=== PATIENT | female | born 1955 | race Caucasian/White ===

== ENCOUNTER 2024-07-25 13:44 | Outpatient (REF) | payer MEDICARE, SELFPAY ==
[2024-07-25 17:48] LABS: MANUAL DIFF FLAG NO
[2024-07-25 18:26] LABS: Basophils Percent Auto 0.9 % (0-2); Eosinophils Absolute Auto 0.2 X10*3/uL (0.0-0.4); Eosinophils Percent Auto 6.1 % (0-4); Hematocrit 37.6 % (37.0-47.0); Hemoglobin 12.6 g/dl (12.0-16.0); Lymphocytes Absolute Auto 0.7 X10*3/uL (1.2-4.9); Lymphocytes Percent Auto 22.6 % (20-40); Mean Corpuscular HGB Conc 33.5 g/dl (31.0-35.0); Mean Corpuscular Hemoglobin 33.2 pg (27.0-33.0); Mean Corpuscular Volume 99.2 fL (80.0-98.0); Monocytes Absolute Auto 0.3 X10*3/uL (0.1-1.2); Monocytes Percent Auto 7.6 % (2-11); Neutrophils Absolute Auto 2.1 x10*3/uL (2.0-8.3); Neutrophils Percent Auto 62.8 % (45-73); Platelet Count 189 X10*3/uL (160-400); Red Blood Count 3.79 X10*6/uL (4.20-5.50); Red Cell Distribution Width 13.6 % (11.0-16.0); White Blood Count 3.3 X10*3/uL (4.8-10.8)
[2024-07-25 18:33] LABS: Alanine Aminotransferase 18 U/L (0-31); Aspartate Amino Transferase 26 U/L (5-31); C Reactive Protein < 0.04 mg/dL (< or = 0.50); Estimated Glomerular Filt Rate > 60
[2024-07-25 19:38] LABS: Erythrocyte Sedimentation Rate 3 MM/HR (0-20)
[2024-07-26 08:10] LABS: ~Hepatitis B Surface Antibody NONREACTIVE (Nonreactive)
[2024-07-26 09:02] LABS: HBc Num1 0.07 S/CO (0.00-0.79); HBsAGNum1 0.34 S/CO (0.00-0.99); Hepatitis B Core Antibody Nonreactive (Nonreactive); Hepatitis B Surface Antigen Negative (Negative); ~HepC Num1 0.07 S/CO (0.00-0.79); ~Hepatitis C Antibody Nonreactive (Nonreactive)
[2024-07-28 14:59] LABS: TS Negative Control Passed; TS Panel A 0; TS Panel B 1; TS Positive Control Passed; TSpotTB Negative (Negative)
== END 2024-07-25 13:45 | disposition home or self-care (01) ==
LOC: HO.HKASLDS 13:44
PROVIDERS: Visit Provider Internal Medicine Rheumatology
DX: Z79.60 Long term (current) use of unspecified immunomodulators and immunosuppressants (principal); Z79.899 Other long term (current) drug therapy; R06.09 Other forms of dyspnea
CPT/HCPCS: 20600; 36415; 82565; 84450; 84460; 85025; 85652; 86140; 86481; 86704; 86706; 86803; 87340; 99212; J2003; J3300

== ENCOUNTER 2024-07-25 13:44 | Outpatient (AMB) | payer MEDICARE, SELFPAY ==
--- NOTE | 2024-07-25 13:52 | MHC.OFFVIS ---
Vital Signs 07/25/24 13:53 Height 5 ft 2 in Weight 111 lb BMI 20.3 BP 114/62 Blood Pressure Location Lt brachial Position Sitting Pulse 73 Pulse Source Pulse Oximeter Pulse Oximetry (%) 97 Oxygen Delivery Method Room Air Intake Visit Reasons: Rheumatoid Arthritis Intake Note: Patient presents today for follow up on RA. Allergies amoxicillin Allergy (Mild, Verified 07/25/24 13:58) Diarrhea clavulanic acid [From Augmentin] Allergy (Mild, Verified 07/25/24 13:58) Stomach Upset HPI HPI Rheumatoid Arthritis: Details: She feels well. She had right de Quervain's tenosynovitis surgery in June. She is healing well. She has constant pain in right 1st MCP. Nodule on MCP is sometimes more pronounced and painful. No recent infection. [facility] Medical History (Updated 07/25/24 @ 22:22 by Dorian Kendrick MD) Trigger finger Carpal tunnel syndrome Surgical History (Updated 07/25/24 @ 14:09 by Leslye Loyola [facility]) History of hip surgery Hx of tonsillectomy Review of Systems Const All systems reviewed & are unremarkable except as noted in HPI and below Physical Exam Vital Signs: Last Vital Signs Pulse 73 07/25/24 13:53 BP 114/62 07/25/24 13:53 Pulse Ox 97 07/25/24 13:53 Oxygen Delivery Method Room Air 07/25/24 13:53 BMI result Body Mass Index 20.3 Const Other: General: Comfortable CVS: RRR Respiratory: clear to auscultation bilaterally. Good respiratory effort Skin: No lesions seen MSK: Tender 1st MCP. No synovitis. She is able to make a fist with both hands. Good range of motion of upper extremities. Limited full external rotation of bilateral hips. Good knee flexion. No MTP tenderness. Office Procedures AMB Joint Injection/Aspiration Joint Injection/Aspiration Details: Right 1st MCP Prep: site was prepped using aseptic technique Injected: 10 mg of, Kenalog, with 0.25 mL of and 1% plain lidocaine Procedure: The patient tolerated the procedure well. Postprocedure protocol was discussed with patient. Coding - Small Joint Procedure code (CPT) selection complete Office Meds lidocaine (PF) 10 mg/mL (1 %) injection solution Performing Provider: Dorian Kendrick MD Performing Location: [facility] Administered by: Dorian Kendrick MD on 07/25/24 22:18 Dose Route Admin Location Dispensed Lot Number Expiration Date [facility] [employer] 2.5 mg Infiltration 2 mL [id number] [employer] Kenalog 40 mg/mL suspension for injection Performing Provider: Dorian Kendrick MD Performing Location: [facility] Administered by: Dorian Kendrick MD on 07/25/24 22:18 Dose Route Admin Location Dispensed Lot Number Expiration Date [facility] [employer] 10 mg intra-articular 1 mL AP [id number] [employer] Assessment & Plan Assessment & Plan (1) Rheumatoid arthritis: Comment: Seronegative, erosive. Right 3rd MCP cortisone injection 01/03/2022. She has a possible sagittal band tear right 2nd MCP. She has good range of motion and function of her right hand. She has constant right 1st MCP pain on monotherapy with methotrexate. Code(s): M06.9 - Rheumatoid arthritis, unspecified Category: Medical Qualifiers: Rheumatoid arthritis location: multiple sites Rheumatoid factor presence: without rheumatoid factor Qualified Code(s): M06.09 - Rheumatoid arthritis without rheumatoid factor, multiple sites Plan: Right 1st MCP intra-articular cortisone injection given this visit Continue methotrexate 15 mg once weekly Continue folic acid 1 mg daily. Insurance will not cover folic acid. Folic acid 1 mg daily is medically necessary while on methotrexate. Labs for disease and drug monitoring on high-risk medication ordered Return to clinic in 3 months (2) Other intermediate (current) drug therapy: Code(s): Z79.899 - Other intermediate (current) drug therapy Category: Medical Plan: See above Orders: Orders Alanine Aminotransferase Today Z79.60 - [facility] (current) use of unspecified immunomodulators and immunosuppressants Creatinine Today Z79.60 - [facility] (current) use of unspecified immunomodulators and immunosuppressants Hepatitis B,C Profile Today Z79.899 - Other blue leather setter (current) drug therapy T Spot TB Today Z79.899 - Other intermediate (current) drug therapy Erythrocyte Sedimentation Rate Today Z79.899 - Other blue leather setter (current) drug therapy C Reactive Protein Today Z79.899 - Other blue leather setter (current) drug therapy Aspartate Amino Transferase Today Z79.60 - all source intelligence technician (current) use of unspecified immunomodulators and immunosuppressants Complete Blood Count Auto Diff Today Z79.60 - all source intelligence technician (current) use of unspecified immunomodulators and immunosuppressants AMB Joint Injection/Aspiration Today M06.09 - Rheumatoid arthritis without rheumatoid factor, multiple sites Medications: New lidocaine (PF) 2.5 mg (0.25 mL) Infiltration ONCE 0.25 mL 0RF M06.09 - Rheumatoid arthritis without rheumatoid factor, multiple sites Kenalog (triamcinolone acetonide) 10 mg (0.25 mL) intra-articular ONCE 0.25 mL 0RF NS M06.09 - Rheumatoid arthritis without rheumatoid factor, multiple sites Coding Level of Care Code Est Pt Level 4 (70198) Complex EM visit Add On G2211 Diagnoses Rheumatoid arthritis of multiple sites with negative rheumatoid factor M06.09 Rheumatoid arthritis location: multiple sites Rheumatoid factor presence: without rheumatoid factor Other intermediate (current) drug therapy Z79.899 CPT Codes Coding - 61570 - Small joint: 66136 - Small Joint ([id number])
[2024-07-25 13:53] VITALS: BP 114/62; PULSE 73; O2SAT 97; BMI 20.3
== END 2024-07-25 14:45 | disposition home or self-care (01) ==
PROVIDERS: Visit Provider Internal Medicine Rheumatology
DX: M06.09 Rheumatoid arthritis without rheumatoid factor, multiple sites (principal); Z79.899 Other long term (current) drug therapy; M18.11 Unilateral primary osteoarthritis of first carpometacarpal joint, right hand
CPT/HCPCS: 20600; 99214

== ENCOUNTER 2024-09-19 14:14 | Outpatient (REF) | payer MEDICARE, SELFPAY ==
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
--- OUTSIDE RECORDS SUMMARY | 2024-09-19 17:27 | XMS_ITS | Clinical Summary ---
Author Organization [place] [address] [facility] Address [address] [place] [address] Phone Care Team Providers Care Corn Press Operator Name Role Phone Vishal Tolentino MD Primary Care Provider [phone] Allergies Active Allergy Reactions Criticality Noted Date Comments Amoxicillin 05/23/2022 Amoxicillin-Pot Clavulanate Diarrhea 08/17/19 13 nausea Medications albuterol HFA (PROAIR HFA ; PROVENTIL HFA ; VENTOLIN HFA) 90 mcg/actuation inhaler Inhale 2 Puffs into the lungs every 6 hours as needed for Cough, Wheezing or Shortness of Breath. 4 Active azithromycin (ZITHROMAX) 250 mg tablet Take 2 tabs 1 hour prior to dental appointment 1 Active acetaminophen (TYLENOL 8 HOUR) 650 mg 8 hr tablet Take 1 Tablet by mouth every 8 hours as needed for Pain for up to 10 days. 3 Active folic acid (FOLVITE) 1 mg tablet Take 1,000 mcg by mouth daily. 2 Active methotrexate 2.5 mg tablet 1 (one) time per week Take 6 on Sundays 2 Active traZODone (DESYREL) 50 mg tablet Take 1 tablet (50 mg total) by mouth at bedtime. 30 tablet 5 5 Active Synthroid 75 mcg tablet Take 1 tablet (75 mcg total) by mouth 1 (one) time each day. 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 05/27/2021 Overview (06/04/2024): Right 07/2020, left 03/2021 Biceps tendinitis, right 08/04/2017 Complete tear of right rotator cuff 08/04/2017 Bone spur 01/28/2009 Overview (06/04/2024): at c-6 Ganglion of joint 06/05/2006 Lipoma 06/05/2006 Overview (06/04/2024): IMO update Hypothyroidism 01/03/2006 Encounters Date Type Department Care Team Description 08/19/2024 Telephone Casing In Line Feeder - [address] [phone] Catrachita Miramontes [place] Medicare Annual Wellness Visit Subsequent (AWV DUE 2024) 08/14/2024 4:00 PM EST Office Visit Internal Medicine - [address] [phone] Denise Dey, Cough, unspecified type (Primary Dx); Elevated BP without diagnosis of hypertension 08/08/2024 Telephone Internal Medicine - [address] [phone] Vishal Tolentino MD Neutropenia 07/29/2024 1:00 PM EST Office Visit General Surgery - [place] [address] [place] [address] Andrzej Coles MD History of left breast cancer (Primary Dx); History of partial mastectomy of left breast 07/15/2024 2:45 PM EST Office Visit Internal Medicine - [address] [phone] Vishal Tolentino MD Hypothyroidism, unspecified type (Primary Dx); Skin lesion; Insomnia, unspecified type 07/15/2024 Telephone Internal Medicine - [place] [address] [address] Vishal Tolentino MD from Last 3 Months Immunizations Name Administration Dates Next Due Influenza Quadravalent, MDCK , 0.5ml, preservative free (Flucelvax) 6mo and older 08/09/2019,06/12/2018 Influenza Quadravalent, MDCK , 0.5ml, with preservative (Flucelvax) 6mo and older 04/21/2017 Influenza trivalent, 0.5mL ( Fluad) 65yo and older 05/27/2021 Influenza trivalent, 0.5mL, preservative free (Fluarix; FluLaval; Fluzone) ages 6mo and older (Afluria) 3 years and older 06/15/2011 Pfizer SARS-CoV-2 COVID-19, mRNA, LNP-S, preservative free 07/06/2021,10/16/2020,09/25/2020 Pneumococcal polysaccharide 23 valent (Pneumovax 23) 2yo and older 09/16/2022 Td, Unspecified 04/10/2001 Tdap Tetanus diptheria acell ular pertussis (Boostrix; Adacel) 7yo and older 06/15/2011 Zoster Live 07/15/2016 Surgical History Surgery Date Site/Laterality Comments APPENDECTOMY 2002 PROCEDURE: KS APPENDECTOMY CARPAL TUNNEL RELEASE R 07/29/12 Dr Gibbons PROCEDURE: KS NEUROPLASTY &/TRANSPOS MEDIAN NRV CARPAL TUNNE; COMMENT: ulnar decomp cubital tunnel decompression CARPAL TUNNEL RELEASE 02/2018 Left PROCEDURE: KS NEUROPLASTY &/TRANSPOS MEDIAN NRV CARPAL TUNNE; COMMENT: Dr Gibbons OTHER SURGICAL HISTORY 02/2018 Left PROCEDURE: KS NEUROPLASTY &/TRANSPOSITION ULNAR NERVE ELBOW; COMMENT: Dr Gibbons ROTATOR CUFF REPAIR 08/2017 Right PROCEDURE: HISTORICAL ROTATOR CUFF REPAIR; COMMENT: Dr Chery HIP ARTHROPLASTY 2020 Bilateral PROCEDURE: HISTORICAL HIP REPLACEMENT; COMMENT: Total OTHER SURGICAL HISTORY 2021 Left PROCEDURE: PARTIAL MASTECTOMY BREAST SURGERY PROCEDURE: KS UNLISTED PROCEDURE BREAST OTHER SURGICAL HISTORY 02/18/2022 Left PROCEDURE: SKIN PUNCH BIOPSY; COMMENT: pagets, squamous cell cancer, DCIS BREAST LUMPECTOMY 04/28/2022 Left PROCEDURE: HISTORICAL BREAST LUMPECTOMY; COMMENT: dcis OTHER SURGICAL HISTORY 05/17/2022 PROCEDURE: BREAST TISSUE EXCISIONAL PATHOLOGY EXAM; COMMENT: re excision Medical History Medical History Date Comments Unspecified hypothyroidism 01/03/2006 DX:Un specified hypothyroidism Shingles 06/03/2010 DX:Shingles Former smoker 10/18/2016 DX:Former smoker Vitreous detachment of left eye 12/04/2019 DX:Vitreous detachment of left eye; COMMENT: Sees Dr Kinney Malignant neoplasm of skin DX:Ma lignant neoplasm of skin Family History Medical History Relation Name Comments Breast cancer Aunt M. AUNT Diabetes Mother Hypertension Mother Colon cancer Neg Hx Ovarian cancer Neg Hx Relation Name Status Comments Aunt M. AUNT Mat Aunt with b ilat breast CA age onset 52 Brother Alive 1 brother Father (Age 85) [place] Maternal Grandfather Maternal Grandmother Mother (Age 72) [place] Mother's side Alive Paternal Grandfather Paternal Grandmother Sister 1 Alive x5 alive 02/2015 Sister 2 (Age 53 (Aug 2014)) end stage Etoh cirrhosis, Celiac disease Social History Tobacco Use Types Packs/Day Years Used Date Smoking Tobacco: Former Cigarettes Q uit: 04/16/2004 Smokeless Tobacco: Never Tobacco Cessation:Counseling Given: Not Answered Alcohol Use Standard Drinks/Week Comments No 0 (1 standard drink = 0.6 oz pur e alcohol) Comments No Sex and Gender Information Value Date Recorded Sex Assigned at Not on file Legal Sex Female 4:28 AM EST Gender Identity Not on file Sexual Orientation Not on file Obstetrics History Last Filed Vital Signs Vital Sign Reading Time Taken Comments Blood Pressure 145/74 08/14/2024 4:25 PM EST Pulse 60 08/14/2024 3:59 PM EST Temperature 36.8 ??C (98.2 ??F) 08/14/2024 3:54 PM ES T Respiratory Rate - - Oxygen Saturation - - Inhaled Oxygen Concentration - - Weight 51.1 kg (112 lb 9.6 oz) 08/14/2024 3:54 P M EST Height 157.5 cm (5' 2 ) 08/14/2024 3:54 PM EST Body Mass Index 20.59 08/14/2024 3:54 PM EST Plan of Treatment Upcoming Encounters Date Type Department Care Team (Late st Contact Info) Description 11/25/2024 1:15 PM EDT Office Visit Pulmonolgy - [place] [address] [facility] [address] [place] [phone] Gerry Jimenez MD 175 [facility] 200 [place] [address] 01/20/2025 1:00 PM EDT Office Visit General Surgery - [place] [address] [facility] [address] [place] [phone] Andrzej Coles MD 175 [facility] 110 [place] [address] 03/19/2025 1:00 PM EDT Appointment Radiology Department [address] [phone] Health Maintenance Due Date Last Done Comments RSV Immunization Patients 60+ Years Old (1 - Risk 60-74 years 1-dose series) 2015 DTaP,Tdap,and Td Vaccines (3 - Td or Tdap) 06/15/2021 06/15/2011, 04/10/2001 Zoster Vaccines (2 of 2) 11/03/2021 09/08/2021, 06/18 Hepatitis C Screening 06/22/2022 Social Influencers of Health Screening 06/22/2022 Depression Screening 09/17/2023 09/16/2022 Falls Risk Assessment 09/17/2023 09/16/2022 Medicare Annual Wellness Visit 09/17/2023 09/16/2022 Pneumococcal Vaccine: 50+ Years (2 of 2 - PCV) 09/17/2023 09/16/2022 COVID-19 Vaccine (4 - 2023- season) 2024 07/06/2021, 10/16/2020, 09/25/2020 Breast Cancer Screening 03/08/2026 03/08/20 24, 03/08/2024, 02/28/2023, Additional history exists Cholesterol Screening (Lipid Panel) 12/11/2028 12/12/2023, 12/12/2023 Colorectal Cancer Screening: Colonoscopy 10/07/2031 10/06/2021 Osteoporosis Screening (Bone Density Screening) 05/18/2033 05/18/2023, 10/22/2020 Influenza Vaccine Completed 06/18/2024, , 05/27/2021, Additional history exists HIB Vaccines Aged Out No longer eligi ble based on patient's age to complete this topic HPV Vaccines Aged Out No longer eligi ble based on patient's age to complete this topic Hepatitis A Vaccines Aged Out No long er eligible based on patient's age to complete this topic Hepatitis B Vaccines Aged Out No long er eligible based on patient's age to complete this topic IPV Vaccines Aged Out No longer eligi ble based on patient's age to complete this topic MMR Vaccines Aged Out No longer eligi ble based on patient's age to complete this topic Meningococcal ACWY Vaccine Aged Out N o longer eligible based on patient's age to complete this topic Meningococcal B Vacine Aged Out No lo nger eligible based on patient's age to complete this topic RSV Immunization Patients Under 20 months Aged Out No longer eligible based on patient's age to complete this topic Varicella Vaccines Aged Out No longer eligible based on patient's age to complete this topic Medical Devices Implanted Type Area Feed Manager Device Identifier Shelf Expiration Date Model / Serial / Lot Shell Trident Ii E 52mm 5 Screw Hole Cluster Tritanium - [id number] Implanted:Qty: 1 on 08/06/2020 by Bryant Delcid MD Right: Hip [employer] [id number] 02/11/2025 702-04-52E / / [id number] Screw Trident Ii 30mm 6.5mm Low Profile Hexagonal Bone - [id number] Implanted:Qty: 1 on 08/06/2020 by Bryant Delcid MD Right: Hip [employer] [id number] 02/10/2025 [id number] / / [id number] Insert Trident 10d E 36mm X3 Acetabular Hip - [id number] Implanted:Qty: 1 on 08/06/2020 by Bryant Delcid MD Right: Hip [employer] [id number] 05/07/2022 623-10-36E / / [id number] Screw Bone Trident Ii L20 Mm Od6.5 Mm Low Profile Hexa - [id number] Implanted:Qty: 1 on 08/06/2020 by Bryant Delcid MD Right: Hip [employer] [id number] 02/15/2025 2037-4758 / / [id number] Stem Hip Neck Angle 127 Degree Accolade Ii Sz #3 - [id number] Implanted:Qty: 1 on 08/06/2020 by Bryant Delcid MD Right: Hip [employer] [id number] 06/05/2025 [id number] / / [id number] Head V40 -2.5mm 36mm Biolox Delta Femoral Hip - [id number] Implanted:Qty: 1 on 08/06/2020 by Bryant Delcid MD Right: Hip [employer] [id number] 04/16/2025 [id number] / / [id number] Procedures Procedure Name Priority Date/Time Associated Diagnosis Comments EXTERNAL CLINICAL LAB 08/09/2024 THYROID STIMULATING HORMONE Routine 07/15/2024 2:54 PM EST Hypothyroidism, unspecified type DIAGNOSTIC MAMMOGRAPHY INCLUDING CAD BILATERAL Routine 03/08/2024 1:42 PM EDT Other abnormal and inconclusive findings on diagnostic imaging of breast LIPID PANEL Routine 12/12/2023 DXA BONE DENSITY STUDY 1+ SITS AXIAL SKEL Routine 05/18/2023 11:30 AM EDT Encounter for screening for osteoporosis DEPRESSION SCREENING Routine 09/16/2022 FALLS RISK ASSESSMENT Routine 09/16/2022 COLONOSCOPY Routine 10/06/2021 from Last 3 Months or Most Recently Relevant to Health Maintenance Results * External clinical lab (08/09/2024) us Provider [facility] LAB BLOOD ORDERABLES Fin al Result * Thyroid stimulating hormone (07/15/2024 2:54 PM EST) TSH 1.38 0.40 - 4.00 mcIU/mL LAB CHEMISTRY METHOD 07/15/2024 6:43 PM EST [facility] Blood Venous blood specimen / Unknown Venipuncture / Unknown 07/15/2024 2:54 PM EST 07/15/2024 2:54 PM EST us Vishal Tolentino MD LAB BLOOD ORDERABLES Final Res ult [facility] [address] [place] [address], * DIAGNOSTIC MAMMOGRAPHY INCLUDING CAD BILATERAL (03/08/2024 1:42 PM EDT) Anatomical Region Laterality Modality Mammography 02/28/2023 4:21 PM EDT Narrative 03/08/2024 2:04 PM EDT This is a summary report. The complete report is available in the patient's medical record. If you cannot access the medical record, please contact the sending organization for a detailed fax or copy. Bilateral mammogram. 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 Full-field digital 2D C views and tomosynthesis bilateral mammograms were obtained as well as straight lateral and spot compression left MLO views of the left breast. ??Compared with priors. ??Reviewed with CAD. There is stable postoperative and postradiation changes in the left periareolar area. ??There is no suspicious masses, microcalcifications or architectural distortion. Conclusions: Stable post lumpectomy/radiation changes in the left breast. ??No new suspicious abnormalities. ??Follow-up mammogram in 1 year returning to the annual screening. BI-RADS 2, benign findings. Procedure Note Nancy Roy MD - 05/01/2024 This is a summary report. The complete report is available in thepatient's medical record. If you cannot access the medical record, pleasecontact the sending organization for a detailed fax or copy. Bilateral mammogram. History: 2 years with partial postlumpectomy and radiation for DCIS withPaget's disease in the nipple areolar complex. Full-field digital 2D C views and tomosynthesis bilateral mammograms wereobtained as well as straight lateral and spot compression left MLO viewsof the left breast. Compared with priors. Reviewed with CAD. There is stable postoperative and postradiation changes in the leftperiareolar area. There is no suspicious masses, microcalcifications orarchitectural distortion. Conclusions: Stable post lumpectomy/radiation changes in the left breast.No new suspicious abnormalities. Follow-up mammogram in 1 year returningto the annual screening. BI-RADS 2, benign findings. Andrzej Coles MD IMG BI PROCEDURES Final Result * (ABNORMAL) Lipid panel (12/12/2023) LDL/HDL Ratio 3 0 - 4 Triglycerides 91 0 - 150 mg/dL Cholesterol 196 0 - 200 mg/dL HDL 77 >=40 mg/dL LDL Cholesterol 101(A) 0 - 100 mg/dL Blood Venous blood specimen / Unknown Historical Provider LAB BLOOD ORDERABLES Doris l Result * DXA BONE DENSITY STUDY 1+ SITS AXIAL SKEL (05/18/2023 11:30 AM EDT) Anatomical Region Laterality Modality Bone Densitometr y 05/05/2023 9:43 AM EDT Narrative 05/18/2023 5:40 PM EDT BONE DENSITY ? Lumbar Spine T-score is -0.2 ?? (SD relative to 20-29 y/o adult) Z-score is +1.8 ??(SD relative to age matched peers) This is normal by criteria defined by the WHO. Left WRIST T-score is -1.4 Z-score is +0.5 This is consistent with osteopenia by criteria defined by the WHO. Comparison exam(s): significant increase in bone density of ??lumbar spine when compared to most recent bone density examination ?? Confidence level is +/-95%. Impression: Based on the World Health Organization criteria, Marcelina Monterroso should be classified as having osteopenia. The [facility] Department of Internal Medicine recommends using National Osteoporosis Foundation (NOF) guidelines in treatment decisions related to osteoporosis. NOF guidelines suggest considering treatment for postmenopausal women and men aged 50 or older presenting with the following: History of hip or vertebral fracture. T-score less than or equal to -2.5 (DXA) at the femoral neck, total hip, or spine, after appropriate evaluation to exclude secondary causes. Low bone mass (T-score between -1.0 and -2.5 at the femoral neck or spine) AND a 10-year probability of a hip fracture greater than or equal to 3% OR a 10-year probability of a major osteoporosis-related fracture greater than or equal to 20% based on the [place]-adapted WHO algorithm Please note that all treatment decisions require clinical judgment and consideration of individual patient factors, including patient preferences, co-morbidities, previous drug use, risk factors not captured in the FRAX model (e.g., frailty, falls, vitamin D deficiency, increased bone turnover, interval significant decline in bone density) and possible under- or over-estimation of fracture risk by FRAX. Procedure Note Nancy Roy MD - 08/22/2023 BONE DENSITY Lumbar Spine T-score is -0.2 (SD relative to 20-29 y/o adult) Z-score is +1.8 (SD relative to age matched peers) This is normal by criteria defined by the WHO. Left WRIST T-score is -1.4 Z-score is +0.5 This is consistent with osteopenia by criteria defined by the WHO. Comparison exam(s): significant increase in bone density of lumbar spinewhen compared to most recent bone density examination Confidence level is +/-95%. Impression: Based on the World Health Organization criteria, Marcelina Monterroso shouldbe classified as having osteopenia. The [facility] Department of Internal Medicine recommendsusing National Osteoporosis Foundation (NOF) guidelines in treatmentdecisions related to osteoporosis. NOF guidelines suggest consideringtreatment for postmenopausal women and men aged 50 or older presentingwith the following: History of hip or vertebral fracture. T-score less than or equal to -2.5 (DXA) at the femoral neck, total hip,or spine, after appropriate evaluation to exclude secondary causes. Low bone mass (T-score between -1.0 and -2.5 at the femoral neck or spine)AND a 10-year probability of a hip fracture greater than or equal to 3% ORa 10-year probability of a major osteoporosis-related fracture greaterthan or equal to 20% based on the [place]-adapted WHO algorithm Please note that all treatment decisions require clinical judgment andconsideration of individual patient factors, including patientpreferences, co-morbidities, previous drug use, risk factors not capturedin the FRAX model (e.g., frailty, falls, vitamin D deficiency, increasedbone turnover, interval significant decline in bone density) and possibleunder- or over-estimation of fracture risk by FRAX. Vishal Tolentino MD [facility] DXA PROCEDURES Final Resul t * Falls Risk Assessment (09/16/2022) [facility] Falls Risk Assessment abstracted Result [facility] Provider HEALTH MAINTENANCE Final Result * Depression Screening (09/16/2022) [facility] Depression Screening abstracted Result [facility] Provider HEALTH MAINTENANCE Final Result * Colonoscopy (10/06/2021) [facility] Colonoscopy no interpretation , abstracted Anatomical Region Laterality Modality Other [facility] Provider HEALTH MAINTENANCE Final Result from Last 3 Months or Most Recently Relevant to Health Maintenance Insurance [employer] Advance Directives Documents on File Type Date Recorded Patient Oracle Hrms Developer Expl anation Health Care Decision (hx) 04/08/2021 AD THAKUR DIRECTIVE Health Care Decision (hx) 04/08/2021 AD THAKUR DIRECTIVE Health Care Decision (hx) 04/08/2021 AD THAKUR DIRECTIVE Health Care Decision (hx) 04/08/2021 AD THAKUR DIRECTIVE Health Care Decision (hx) 04/08/2021 AD THAKUR DIRECTIVE Health Care Decision (hx) 04/08/2021 AD THAKUR DIRECTIVE Health Care Decision (hx) 04/08/2021 AD THAKUR DIRECTIVE Health Care Decision (hx) 04/08/2021 AD THAKUR DIRECTIVE Health Care Decision (hx) 04/08/2021 AD THAKUR DIRECTIVE Health Care Decision (hx) 04/05/2021 AD THAKUR DIRECTIVE Health Care Decision (hx) 04/05/2021 AD THAKUR DIRECTIVE Health Care Decision (hx) 04/05/2021 AD THAUKR DIRECTIVE Health Care Decision (hx) 04/05/2021 AD THAKUR DIRECTIVE Health Care Decision (hx) 04/05/2021 AD THAKUR DIRECTIVE Health Care Decision (hx) 04/05/2021 AD THAKUR DIRECTIVE Health Care Decision (hx) 04/05/2021 AD THAKUR DIRECTIVE Health Care Decision (hx) 04/05/2021 AD THAKUR DIRECTIVE Health Care Decision (hx) 04/05/2021 AD THAKUR DIRECTIVE Care Teams Corn Press Operator Relationship Specialty Start Date End Date Vishal Tolentino MD [address] [place] [id number] PCP - General Internal Medicine 05/20/24
--- OUTSIDE RECORDS SUMMARY | 2024-09-19 17:27 | XMS_ITS | Clinical Summary ---
Author Organization [facility] Address [address] [place] [address] Care Team Providers Care Solutions Consultant Name Role Phone Unavailable Primary Care Provider Unavailabl e Social History Tobacco Use Types Packs/Day Years Used Date Smoking Tobacco: Never Assessed Sex and Gender Information Value Date Recorded Sex Assigned at Not on file Gender Identity Not on file Sexual Orientation Not on file Plan of Treatment Health Maintenance Due Date Last Done Comments Hepatitis C Virus Screening 1955 DTaP/Tdap/Td Vaccines (1 - Tdap) 1974 Pneumococcal Vaccines 50+ (1 of 1 - PCV) 2005 Zoster (Shingles) Vaccine (1 of 2) 2005 COVID-19 Vaccine ( - 2023-2 5 season) 2024 RSV Vaccine 60 years and old er and Patients (1 - 1-dose 75+ series) 2030 Hepatitis B Vaccines Aged Out No long er eligible based on patient's age to complete this topic
--- OUTSIDE RECORDS SUMMARY | 2024-09-19 17:27 | XMS_ITS ---
Author Organization [facility] Address [address] [address] Care Team Providers Care Receiving Lead Name Role Phone Vishal Tolentino Primary Care Provider AUBRIE Farias [phone] REASON FOR VISIT Terbinafine refill Encounters Encounter Location Date Provider Diagnosis [facility] [address] [phone] 07/25/2024 AUBRIE ALFARO Plan Of Treatment Next Appt Details Provider Name:AUBRIE ALFARO, 11/08/2024 02:30:00 PM, [address] [address], [place], [address], Progress Notes * ROMANJuan Carlos OsborneSamiOB: [birth year] (69 yo F)Acc No.[id number]:07/25/2024 Patient:?Juan Carlos MONTERROSOine :1955???Age:69 Y???Sex:Female Address:[address], [place] [address] * true * Date:? Generated for Printi shabnam/Miles/eTransmitting on:?09/19/2024 05:27 PM EST
--- OUTSIDE RECORDS SUMMARY | 2024-09-19 17:27 | XMS_ITS | Encounter Summary ---
Author Organization [facility] Address [address] [place] [address] Care Team Providers Care Dyslexia Teacher Name Role Phone Vishal Tolentino MD Primary Care Provider Reason for Visit * Reason Onset Date Comments Medicare Annual Wellness Visit Subsequent 2024 AWV DUE 2024 Encounter Details Date Type Department Care Team (Late st Contact Info) Description 08/19/2024 Telephone Branch Store Manager - [place] [address] [place] [phone] Catrachita Miramontes [place] Medicare Annual Wellness Visit Subsequent (AWV DUE 2024) Social History Tobacco Use Types Packs/Day Years Used Date Smoking Tobacco: Former Cigarettes Q uit: 04/16/2004 Smokeless Tobacco: Never Alcohol Use Standard Drinks/Week Comments No 0 (1 standard drink = 0.6 oz pur e alcohol) Comments No Sex and Gender Information Value Date Recorded Sex Assigned at Not on file Legal Sex Female 4:28 AM EST Gender Identity Not on file Sexual Orientation Not on file documented as of this encounter Progress Notes * Catrachita Miramontes MA - 08/19/2024 2:25 PM EST Message left for patient to contact the Quality Department in reference to booking an Annual Wellness Visit appt w/Breanna Wellness Nurse in 2024. Transfer to Catrachita Miramontes @ [phone]. PT is not on the April/2024 report. documented in this encounter Plan of Treatment Upcoming Encounters Date Type Department Care Team (Late st Contact Info) Description 11/25/2024 1:15 PM EDT Office Visit Pulmonolgy - [place] 175 [facility] 200 [place] [address] Gerry Jimenez MD 175 [facility] 200 [place] [address] 01/20/2025 1:00 PM EDT Office Visit General Surgery - [place] [address] [phone] Andrzej Coles MD 175 [facility] 110 [place] [address] 03/19/2025 1:00 PM EDT Appointment Radiology Department [address] [phone] documented as of this encounter Visit Diagnoses Not on filedocumented in this encounter Care Teams Dyslexia Teacher Relationship Specialty Start Date End Date Vishal Tolentino MD [address] [place] [address] PCP - General Internal Medicine 05/20/24 documented as of this encounter
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
--- OUTSIDE RECORDS SUMMARY | 2024-09-19 17:28 | XMS_ITS | Clinical Summary ---
Author Organization [facility] Address [address] [place] [address] Care Team Providers Care Catalytic Case Operator Name Role Phone Vishal Tolentino MD Primary Care Provider [phone] Allergies Active Allergy Reactions Criticality Noted Date Comments Amoxicillin-Pot Clavulanate Diarrhea Low 09/04/19 18 Medications Medication Sig Dispensed Refills Start Date End Date Status gabapentin (NEURONTIN) 300 MG capsule Take 600 mg by mouth every night at bedtime. 0 07/12/2017 Active SYNTHROID 100 MCG tablet 88 mcg daily. 0 09/08/2019 Active traZODone (DESYREL) 50 MG tablet Take 50 mg by mouth every night at bedtime. 0 07/09/2020 Active acetaminophen (TYLENOL EXTRA STRENGTH) 500 MG tablet Take 2 tablets (1,000 mg total) by mouth every 8 (eight) hours as needed for pain. 60 tablet 0 08/08/2020 Active azithromycin (ZITHROMAX) 250 MG tablet Take 2 tabs 1 hour prior to dental appointment 10 tablet 2 11/19/2020 Active Calcium Carbonate-Vitamin D 600-200 MG-UNIT TABS Take 1 tablet by mouth daily. 0 Active meloxicam (MOBIC) 15 MG tablet TAKE 1 TABLET(15 MG) BY MOUTH DAILY 30 tablet 2 04/05/2021 Active aspirin EC 81 MG tablet Take 1 tablet twice daily x 4 weeks 60 tablet 0 04/22/2021 Active senna-docusate (PERICOLACE) 8.6-50 MG Take 1 tablet by mouth 2 (two) times a day. 60 tablet 0 07/02/2021 Active baclofen (LIORESAL) 10 MG tablet TAKE 1 TABLET BY MOUTH AT BEDTIME NEEDED FOR MUSCLE SPASM. MAY CAUSE SEDATION 0 06/28/2021 Active Synthroid 75 MCG tablet 0 07/26/2021 Active methocarbamol (Robaxin-750) 750 MG tablet Take 1 tab every 12 hours as needed for muscle spasms 60 tablet 2 09/15/2021 Active albuterol 108 (90 Base) MCG/ACT inhaler INHALE 2 PUFFS INTO THE LUNGS EVERY 6 HOURS NEEDED FOR COUGH OR SHORTNESS OF BREATH 0 11/26/2021 Active levothyroxine (SYNTHROID) tablet 75 mcg Take 1 tablet by mouth daily. 0 12/01/2021 Active folic acid (FOLVITE) tablet 1 mg Take 1,000 mcg by mouth daily. 0 01/28/2022 Active methotrexate 2.5 MG tablet TAKE 5 TABLETS BY MOUTH 1 TIME WEEKLY 0 03/26/2022 Active oxyCODONE (ROXICODONE) 5 MG immediate release tablet Take 5 mg by mouth every 6 (six) hours as needed. 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 0 09/01/2022 Encounter for postoperative wound check 09/09/19 21 Biceps tendinitis, right 08/04/2017 Complete tear of right rotator cuff 08/04/2017 Family History Medical History Relation Name Comments Asthma Brother Arthritis Father Heart attack Father Prostate cancer Father Diabetes Mother Heart attack Mother Arthritis Sister 1 5 Diabetes Sister 1 5 Obesity Sister 1 5 Scoliosis Sister 1 5 Cirrhosis Sister 2 Relation Name Status Comments Brother Alive Father (Age 87) [place] Mother (Age 72) [place] Sister 1 5 Alive Sister 2 (Age 50) CIRRHOSIS Social History Tobacco Use Types Packs/Day Years Used Date Smoking Tobacco: Former Cigarettes 1.5 35 Q uit: 07/22/2004 Smokeless Tobacco: Never Alcohol Use Standard Drinks/Week Comments No 0 (1 standard drink = 0.6 oz pur e alcohol) Sex and Gender Information Value Date Recorded Sex Assigned at Female 07/22/2020 4:03 PM EST Gender Identity Female 07/22/2020 4:03 PM EST Sexual Orientation Straight 08/06/2020 7: 40 AM EST Job Start Date Occupation Industry Not on file Not on file Not on file Last Filed Vital Signs Vital Sign Reading Time Taken Comments Blood Pressure 141/52 08/29/2022 10:09 AM EST Pulse 63 08/29/2022 10:09 AM EST Temperature 36.9 ??C (98.4 ??F) 08/29/2022 10:[address] Respiratory Rate 18 08/08/2020 7:32 AM EST Oxygen Saturation 97% 08/29/2022 10:09 AM EST Inhaled Oxygen Concentration - - Weight 52.3 kg (115 lb 6.4 oz) 08/29/2022 10:09 AM EST Height 157.5 cm (5' 2 ) 08/29/2022 10:09 AM EST Body Mass Index 21.11 08/29/2022 10:09 AM EST Plan of Treatment Health Maintenance Due Date Last Done Comments Hepatitis C Screening 1955 Pneumococcal Vaccine (1 of 2 - PCV) 1961 Depression Screening 1967 Preventative Health Evaluation 1973 Shingrix-Zoster Vaccine (1 of 2) 1974 Colon Cancer Screening (Colonoscopy) 2000 Breast Cancer Screening (Mammogram) 2005 Fall Risk Assessment 2020 Osteoporosis Screening (DEXA Scan) 2020 DTap / Tdap / Td (2 - Td or Tdap) 06/15/2021 06/15/2011 COVID-19 Vaccine ( season) 2024 07/06/2021, 10/16/2020, 09/25/2020 Influenza Vaccine (#1) 2024 , 08/09/2019, 06/12/2018, Additional history exists RSV Adult > 60+ Yrs or (1 - 1-dose 75+ series) 2030 Hepatitis B Vaccines Aged Out No long er eligible based on patient's age to complete this topic RSV Ped < 20 months Aged Out No longe r eligible based on patient's age to complete this topic Medical Devices Implanted Type Area Court Messenger Device Identifier Shelf Expiration Date Model / Serial / Lot Wing Sut 5.5mm Fullthrd Med Insite Preld Frc Fbr Sprt Peek - [id number] - [id number] Implanted:Qty : 1 on 09/06/2017 by Ari Serrano MD at [facility] Right: Shoulder [employer] 04/12/2020 [id number] / / [id number] Wing Sut 5.5mm Fullthrd Med Insite Preld Frc Fbr Sprt Peek - [id number] - [id number] Implanted:Qty : 1 on 09/06/2017 by Ari Serrano MD at [facility] and [facility] Right: Shoulder [employer] 06/29/2019 [id number] / / [id number] Wing Swivelock 19.1mm 4.75mm Clsd Eyelet Vent Peek - [id number] - [id number] Implanted:Qty : 1 on 09/06/2017 by Ari Serrano MD at [facility] and [facility] Right: Shoulder [employer] 04/15/2022 [id number] / / [id number] Shell Trident Ii E 52mm 5 Screw Hole Cluster Tritanium - [id number] - [id number] Implanted:Qty : 1 on 08/06/2020 by Bryant Delcid MD at [facility] and [facility] Right: Hip [employer] [id number] 02/11/2025 702-04-52E / / [id number] Screw Trident Ii 30mm 6.5mm Low Profile Hexagonal Bone - [id number] - [id number] Implanted:Qty : 1 on 08/06/2020 by Bryant Delcid MD at [facility] and Med Right: Hip [employer] [id number] 02/10/2025 [id number] / / [id number] Insert Trident 10d E 36mm X3 Acetabular Hip - [id number] - [id number] Implanted:Qty : 1 on 08/06/2020 by Bryant Delcid MD at [facility] and [facility] Right: Hip [employer] [id number] 05/07/2022 623-10-36E / / [id number] Screw Bone Trident Ii L20 Mm Od6.5 Mm Low Profile Hexa - [id number] - [id number] Implanted:Qty : 1 on 08/06/2020 by Bryant Delcid MD at [facility] and [facility] Right: Hip [employer] [id number] 02/15/2025 [id number] / / [id number] Stem Hip Neck Angle 127 Degree Accolade Ii Sz #3 - [id number] - [id number] Implanted:Qty : 1 on 08/06/2020 by Bryant Delcid MD at [facility] and [facility] Right: Hip [employer] [id number] 06/05/2025 0926-0666 / / [id number] Head V40 -2.5mm 36mm Biolox Delta Femoral Hip - [id number] - [id number] Implanted:Qty : 1 on 08/06/2020 by Bryant Delcid MD at [facility] and [facility] Right: Hip [employer] [id number] 04/16/2025 6570-0-436 / / [id number] Advance Directives For more information, please contact: [phone] Latest Code Status on File Code Status Date Activated Date Inactivated Comments Full Code 08/06/2020 9:36 AM 08/08/2020 6:14 PM This code status was ascertained in the following way: discussion with patient . Code Status History Code Status Date Activated Date Inactivated Comments Full Code 08/06/2020 7:14 AM 08/06/2020 9:36 AM This code status was ascertained in the following way: discussion with patient . Care Teams Catalytic Case Operator Relationship Specialty Start Date End Date Vishal Tolentino MD PCP - General Internal Medicine 07/29/20
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
[2024-09-19 17:53] LABS: MANUAL DIFF FLAG NO
[2024-09-19 18:04] LABS: Basophils Percent Auto 0.8 % (0-2); Eosinophils Absolute Auto 0.2 X10*3/uL (0.0-0.4); Eosinophils Percent Auto 4.3 % (0-4); Hematocrit 35.6 % (37.0-47.0); Hemoglobin 11.7 g/dl (12.0-16.0); Imm Gran Abs Auto 0.01 X10*3/uL (0.00-0.03); Imm Gran Pct Auto 0.3 % (0.0-0.4); Lymphocytes Absolute Auto 0.8 X10*3/uL (1.2-4.9); Lymphocytes Percent Auto 21.1 % (20-40); Mean Corpuscular HGB Conc 32.9 g/dl (31.0-35.0); Mean Corpuscular Hemoglobin 33.1 pg (27.0-33.0); Mean Corpuscular Volume 100.8 fL (80.0-98.0); Mean Platelet Volume 9.4 fL (9.4-12.3); Monocytes Absolute Auto 0.3 X10*3/uL (0.1-1.2); Monocytes Percent Auto 6.9 % (2-11); Neutrophils Absolute Auto 2.6 x10*3/uL (2.0-8.3); Neutrophils Percent Auto 66.6 % (45-73); Platelet Count 208 X10*3/uL (160-400); Red Blood Count 3.53 X10*6/uL (4.20-5.50); Red Cell Distribution Width 14.3 % (11.0-16.0); White Blood Count 3.9 X10*3/uL (4.8-10.8)
== END 2024-09-19 14:15 | disposition home or self-care (01) ==
LOC: HO.HKASLDS 14:14
PROVIDERS: Visit Provider Internal Medicine Rheumatology
DX: M06.09 Rheumatoid arthritis without rheumatoid factor, multiple sites (principal); D72.819 Decreased white blood cell count, unspecified
CPT/HCPCS: 36415; 85025

== ENCOUNTER 2024-10-24 14:24 | Outpatient (AMB) | payer MEDICARE, SELFPAY ==
--- NOTE | 2024-10-24 14:35 | MHC.OFFVIS ---
Vital Signs 10/24/24 14:47 Height 5 ft 2 in Weight 113 lb 1.554 oz BMI 20.7 BP 130/64 Blood Pressure Location Rt brachial Position Sitting Pulse Source Pulse Oximeter Pulse Oximetry (%) 98 Oxygen Delivery Method Room Air Intake Visit Reasons: 3 mo follow up Intake Note: Patient presents today for follow up on RA. Allergies amoxicillin Allergy (Mild, Verified 10/24/24 14:44) Diarrhea clavulanic acid [From Augmentin] Allergy (Mild, Verified 10/24/24 14:44) Stomach Upset HPI HPI 3 mo follow up: Details: Pain resolved in right hand. Denies morning stiffness. Denies recent infections. No new joint swelling. She continues to have lower back pain. Constant. She was unable to go to PT. [facility] Medical History Trigger finger Carpal tunnel syndrome Surgical History History of hip surgery Hx of tonsillectomy Review of Systems Const All systems reviewed & are unremarkable except as noted in HPI and below Physical Exam Vital Signs: Last Vital Signs BP 130/64 10/24/24 14:47 Pulse Ox 98 10/24/24 14:47 Oxygen Delivery Method Room Air 10/24/24 14:47 BMI result Body Mass Index 20.7 Const Other: General: Comfortable CVS: RRR Respiratory: clear to auscultation bilaterally. Good respiratory effort Skin: No lesions seen MSK: No tender joints. No synovitis. She is able to make a fist with both hands. Normal range of motion of upper extremities. Limited full external rotation of bilateral hips. Normal knee flexion. No MTP tenderness. Tender to palpate lower lateral to lumbar paraspinal muscles. Good lumbar flexion. No SI joint tenderness. Negative SHAINA. Assessment & Plan Assessment & Plan (1) Rheumatoid arthritis: Comment: In remission on monotherapy with methotrexate. Methotrexate dose was reduced from 15 mg once weekly to 10 mg once weekly due to leukopenia and mild macrocytic anemia. Patient had many questions about RA, exercise and life expectancy. Answered patient's questions to her satisfaction. Rheumatology history: Seronegative, erosive. Right 3rd MCP cortisone injection 01/03/2022, and right 2nd MCP 07/2024. She has a possible sagittal band tear right 2nd MCP. She has good range of motion and function of her right hand. MTX dose reduced from 15 mg once weekly to 10 mg once weekly due to leukopenia and mild macrocytic anemia 09/2024. Code(s): M06.9 - Rheumatoid arthritis, unspecified Category: Medical Qualifiers: Rheumatoid arthritis location: multiple sites Rheumatoid factor presence: without rheumatoid factor Qualified Code(s): M06.09 - Rheumatoid arthritis without rheumatoid factor, multiple sites Plan: Labs for disease and drug monitoring ordered this visit Continue methotrexate 10 mg once weekly Continue folic acid 1 mg daily. Insurance will not cover folic acid. Folic acid 1 mg daily is medically necessary while on methotrexate. We will try to process PA. We discussed the importance of healthy eating and diet control. I recommend of the Mediterranean diet due to evidence to support its benefits in individuals with autoimmune disease. Return to clinic in 3 months (2) Strain of lumbar paraspinal muscle: Comment: Discussed conservative management. Her pain is not related to SI joint pathology. X-ray from June 2023 of SI joints were normal. Code(s): S39.012A - Strain of muscle, fascia and tendon of lower back, initial encounter Category: Medical Qualifiers: Encounter type: initial encounter Qualified Code(s): S39.012A - Strain of muscle, fascia and tendon of lower back, initial encounter Plan: Try lidocaine past Try heat or ice PT ordered. Patient prefers to have PT local to her home. Return to clinic in 3 months (3) Other mcc (current) drug therapy: Code(s): Z79.899 - Other continuous churn buttermaker (current) drug therapy Category: Medical Plan: See above Orders: Orders Aspartate Amino Transferase Today Z79.60 - FDC (current) use of unspecified immunomodulators and immunosuppressants PT Evaluation and Treatment Today S39.012A - Strain of muscle, fascia and tendon of lower back, initial encounter Alanine Aminotransferase Today Z79.60 - intermediate manager (current) use of unspecified immunomodulators and immunosuppressants Complete Blood Count Auto Diff Today Z79.60 - FDC (current) use of unspecified immunomodulators and immunosuppressants Creatinine Today Z79.60 - intermediate manager (current) use of unspecified immunomodulators and immunosuppressants Erythrocyte Sedimentation Rate Today M06.09 - Rheumatoid arthritis without rheumatoid factor, multiple sites C Reactive Protein Today Z79.899 - Other continuous churn buttermaker (current) drug therapy Coding Level of Care Code Est Pt Level 4 (50034) Complex EM visit Add On G2211 Diagnoses Rheumatoid arthritis of multiple sites with negative rheumatoid factor M06.09 Rheumatoid arthritis location: multiple sites Rheumatoid factor presence: without rheumatoid factor Strain of lumbar paraspinous muscle, initial encounter S39.012A Encounter type: initial encounter Other mcc (current) drug therapy Z79.899
[2024-10-24 14:47] VITALS: BP 130/64; O2SAT 98; BMI 20.7
--- OUTSIDE RECORDS SUMMARY | 2024-10-24 17:09 | XMS_ITS | Clinical Summary ---
Author Organization [facility] Address [address] [place] [address] Care Team Providers Care Physician/Ophthalmologist Name Role Phone Vishal Tolentino MD Primary Care Provider [phone] Allergies Active Allergy Reactions Criticality Noted Date [...] Status Comments Brother Alive Father (Age 87) [place] Mother (Age 72) [place] Sister 1 5 Alive Sister 2 (Age [...] this topic Medical Devices Implanted Type Area Entry Level Automotive Technician Device Identifier Shelf Expiration Date Model / Serial / Lot [place] Sut 5.5mm Fullthrd Med Insite Preld Frc Fbr Sprt Peek - [id number] - [id number] Implanted:Qty : 1 on 09/06/2017 by Ari Serrano MD at [facility] Right: Shoulder [employer] 04/12/2020 [id number] / / [id number] [place] Sut 5.5mm Fullthrd Med Insite Preld Frc Fbr Sprt Peek - [id number] - [id number] Implanted:Qty : 1 on 09/06/2017 by Ari Serrano MD at [facility] Right: Shoulder [employer] 06/29/2019 [id number] / / [id number] Mammoth Cave Swivelock 19.1mm 4.75mm Clsd Eyelet Vent Peek - 613119 - [id number] Implanted:Qty : 1 on 09/06/2017 by Ari Serrano MD at [facility] Right: Shoulder [employer] 04/15/2022 [id number] / / [id number] Shell Trident Ii E 52mm 5 Screw Hole Cluster Tritanium - 020974 - [id number] Implanted:Qty : 1 on 08/06/2020 by Bryant Delcid MD at [facility] Right: Hip [employer] [id number] 02/11/2025 702-04-52E / / [id number] Screw Trident Ii 30mm 6.5mm Low Profile Hexagonal Bone - 147143 - [id number] Implanted:Qty : 1 on 08/06/2020 by Bryant Delcid MD at [facility] Right: Hip [employer] [id number] 02/10/2025 5022-4422 / / [id number] Insert Trident 10d E 36mm X3 Acetabular Hip - 293512 - [id number] Implanted:Qty : 1 on 08/06/2020 by Bryant Delcid MD at [facility] Right: Hip [employer] [id number] 05/07/2022 623-10-36E / / [id number] Screw Bone Trident Ii L20 Mm Od6.5 Mm Low Profile Hexa - 753902 - [id number] Implanted:Qty : 1 on 08/06/2020 by Bryant Delcid MD at [facility] Right: Hip [employer] [id number] 02/15/2025 2930-4285 / / [id number] Stem Hip Neck Angle 127 Degree Accolade Ii Sz #3 - 777399 - [id number] Implanted:Qty : 1 on 08/06/2020 by Bryant Delcid MD at [facility] Right: Hip [employer] [id number] 06/05/2025 2440-8492 / / [id number] Head V40 -2.5mm 36mm Biolox Delta Femoral Hip - 287259 - [id number] Implanted:Qty : 1 on 08/06/2020 by Bryant Delcid MD at [facility] Right: Hip [employer] [id number] 04/16/2025 6570-0-436 / / [id number] Advance Directives For more information, please contact: [phone] Latest Code Status on File Code Status [...] way: discussion with patient . Care Teams Physician/Ophthalmologist Relationship Specialty Start Date End Date Vishal Tolentino MD PCP - General Internal Medicine 07/29/20
--- OUTSIDE RECORDS SUMMARY | 2024-10-24 17:09 | XMS_ITS ---
Author Organization [facility] Address [address] [address] Care Team Providers Care Route Driver Coin Machines Name Role Phone Vishal Tolentino Primary Care Provider AUBRIE Farias [phone] REASON FOR VISIT Terbinafine refill Encounters Encounter Location Date Provider Diagnosis [facility] [address] [address] 07/25/2024 AUBRIE ALFARO Plan Of Treatment Next Appt Details Provider Name:AUBRIE ALFARO, 11/08/2024 02:30:00 PM, [address] [address], [place], [address], Progress Notes * ROMANJuan Carlos OsborneSamiOB: 955 (69 yo F)Acc No.[id number]:07/25/2024 Patient:?Juan Carlos MONTERROSOine :1955???Age:69 Y???Sex:Female Address:[address], [place] [address] * true * Date:? Generated for Printi shabnam/Miles/eTransmitting on:?10/24/2024 05:09 PM EDT
--- OUTSIDE RECORDS SUMMARY | 2024-10-24 17:09 | XMS_ITS ---
Author Name [facility] Organization Unknown Encounters Encounter Type Encounter Reason Primary Diagnosis Location Date Ambulatory [facility] 11/15/2022 Ambulatory [facility] 11/15/2022 Ambulatory [facility] 11/15/2022
--- OUTSIDE RECORDS SUMMARY | 2024-10-24 17:09 | XMS_ITS ---
Author Organization [facility] Address [address] [facility] [address] [facility] [place] [address] Care Team Providers Care Trailer Technician Name Role Phone Vishal Tolentino Primary Care Provider GUERA Farias Unavailable [phone] Allergies Allergen (clinical drug ingredient) Drug/Non Drug [...] 07/01/2024 Encounters Encounter Location Date Provider Diagnosis [facility] [address] [facility] [address] [place] [address] 07/01/2024 GUERA JURADO Nail dystrophy L60.3 ; [...] Name:GUERA JURADO, 11/08/2024 02:30:00 PM, [address], [address], Progress Notes * Kelli MONTERROSOOB: 9[birth year] (68 yo F)Acc No.[id number]:07/01/2024 Progress Note Patient:?Marcelina MONTERROSO Provider:?Guera Jurado DPM :1955???Age:68 Y???Sex:Female D ate:07/01/2024 Address:[address], [facility] Pcp:Vishal Tolentino Subjective: * Chief [...] * Family History:?Father: dece ased 85 yrs, [place].?Mother: 72 yrs, [place], diabetes, hypertension.?Paternal Grand Father: .?Paternal Grand Mother: [...] Months * Billing Information: * Visit Code:? 76754 Office Visit, Est Pt., Level 3. * Procedure Codes:? * Sign off status: Completed true * Provider:?Guera Jurado DPM Date:? 07/01/2024 Generated for Emmie haque/Miles/Harrisonitting on:?10/24/2024 05:09 PM EDT History and Physical Notes * HPI (History [...]
--- OUTSIDE RECORDS SUMMARY | 2024-10-24 17:09 | XMS_ITS | Patient Health Record ---
Author Organization [facility] Address [address] [facility] [address] [place] [address] Care Team Providers Care Night Coordinator Name Role Phone Vishal Tolentino Primary Care Provider AUBRIE Farias Unavailable [phone] Allergies Allergen (clinical drug ingredient) Drug/Non Drug Allergy documented on EMR Reaction Allergy Type Onset Date Status amoxicillin Amoxicillin Unknown Drug Allergy Act da amoxicillin / clavulanate Augmentin Unknown Drug Allergy Active Results Component Value Reference Range Notes Lilibeth Rawls [facility]7 Default Reviewed date:11/07/2023 01:22:21 PM Interpretation: Performing Lab:[facility] М[facility]ия, [address] [place] [address], Phone - [phone], Director - Jay Notes/Report: Lilibeth Rawls [facility] Default A hand-written panel/profile was received from your office. In accordance with the [facility] Ambig[facility] Code Policy dated January 2003, we have completed your order by using the closest currently or formerly recognized AMA panel. We have assigned Hepatic Function Panel (7), Test Code #373428 to this request. If this is not the testing you wished to receive on this specimen, please contact the [facility]ical Services Department to clarify the test order. We appreciate your business. Hepatic Function Panel (7)-3 [id number] Reviewed date:11/07/2023 01:32:54 PM Interpretation: Performing Lab:[facility], [address] [facility], [place], Phone - [phone], Director - MDJodry Notes/Report: Protein, Total 6.5 6.0-8.5 g/dL Albumin [...] 07/01/2024 Encounters Encounter Location Date Provider Diagnosis [facility] [address] 11/06/2023 AUBRIE ALFARO Onychomycosis B35.1 [facility] [address] [address] 12/29/2023 AUBRIE ALFARO Nail dystrophy L60.3 ; Onychomycosis B35.1 ; Skin hyperkeratosis L85.9 ; Pain in left toe(s) M79.675 and Pain in right toe(s) M79.674 [facility] [address] 07/01/2024 AUBRIE ALFARO Nail dystrophy L60.3 ; Onychomycosis B35.1 ; Skin hyperkeratosis L85.9 ; Pain in left toe(s) M79.675 and Pain in right toe(s) M79.674 [facility] [address] [address] 12/29/2023 AUBRIE ALFARO [facility] [address] [address] 07/25/2024 AUBRIE ALFARO Assessments Encounter Date Diagnosis (ICD Code) Assessment Notes Treatment Notes Treatment Clinical Notes Section Notes 11/06/2023 Onychomycosis (ICD-10 - B35.1) 12/29/2023 Nail [...] urea cream. 12/29/2023 Onychomycosis (ICD-10 - B35.1) 12/29/2023 Skin [...] Name:AUBRIE ALFARO, 11/08/2024 02:30:00 PM, [address] [facility] [address], [place], [address], Insurance Providers Payer Name Payer Address Payer Phone Subscriber Number Group Number Insured Name Patient Relationship to Insured Coverage Start Date Coverage End Date [facility] [address] [place] [id number] Marcelina Monterroso Self - patient is the [...]
--- OUTSIDE RECORDS SUMMARY | 2024-10-24 17:09 | XMS_ITS ---
Author Organization [facility] Address [address] [facility] [address] [facility] [place] [address] Care Team Providers Care 3Rd Pressman Name Role Phone Randa Vishal Primary Care Provider GUERA Farias Unavailable [phone] Allergies Allergen (clinical drug ingredient) Drug/Non Drug [...] 12/29/2023 Encounters Encounter Location Date Provider Diagnosis [facility] [address] [facility] [address] [place] [address] 12/29/2023 GUERA JURADO Nail dystrophy L60.3 ; [...] Name:GUERA JURADO, 11/08/2024 02:30:00 PM, [address] [address], [place], [address], Progress Notes * Juan Carlos MONTERROSOSamiOB: [birth year] (68 yo F)Acc No.[id number]:12/29/2023 Progress Note Patient:?Marcelina MONTERROSO Provider:?Guera Jurado DPM :1955???Age:68 Y???Sex:Female D ate:12/29/2023 Address:[address] [place], [place] [address] Pcp:Vishal Tolentino Subjective: * Chief Complaints: * [...] * Family History:?Father: dece ased 85 yrs, [place].?Mother: 72 yrs, [place], diabetes, hypertension.?Paternal Grand Father: .?Paternal Grand Mother: [...] Months * Billing Information: * Visit Code:? 96618 Office Visit, Est Pt., Level 3. * Procedure Codes:? * Sign off status: Completed true * Provider:?Guera Jurado DPM Date:? 12/29/2023 Generated for Emmie haque/Miles/Carol Ann on:?10/24/2024 05:08 PM EDT History and Physical Notes * [...]
--- OUTSIDE RECORDS SUMMARY | 2024-10-24 17:09 | XMS_ITS | Clinical Summary ---
Author Organization [place] [address] Diana mckinley [facility] Building Address [address] [facility] [place] [address] Phone Care Team Providers Care Cupola Charger Insulation Name Role Phone Vishal Tolentino MD Primary Care Provider [phone] Allergies Active Allergy Reactions Criticality Noted Date [...] Type Department Care Team Description 08/19/2024 Telephone Fruit Shipper - [address] [phone] Catrachita Miramontes [place] Medicare Annual Wellness Visit Subsequent (AWV DUE 2024) 08/14/2024 4:00 PM EST Office Visit Internal Medicine - [address] [phone] Denise Dey DO Cough, unspecified type (Primary Dx); Elevated BP without diagnosis of hypertension 08/08/2024 Telephone Internal Medicine - [address] [phone] Vishal Tolentino MD Neutropenia 07/29/2024 1:00 PM EST Office Visit General Surgery - [place] [address] [place] [address] Andrzej Coles MD History of left breast cancer (Primary Dx); History of partial mastectomy of left breast from Last 3 Months Immunizations Name Administration [...] Surgery Date Site/Laterality Comments APPENDECTOMY 2002 PROCEDURE: [place] APPENDECTOMY CARPAL TUNNEL RELEASE R 07/29/12 Dr Gibbons PROCEDURE: [place] NEUROPLASTY &/TRANSPOS MEDIAN NRV CARPAL TUNNE; COMMENT: ulnar decomp cubital tunnel decompression CARPAL TUNNEL RELEASE 02/2018 Left PROCEDURE: [place] NEUROPLASTY &/TRANSPOS MEDIAN NRV CARPAL TUNNE; COMMENT: Dr Gibbons OTHER SURGICAL HISTORY 02/2018 Left PROCEDURE: [place] NEUROPLASTY &/TRANSPOSITION ULNAR NERVE ELBOW; COMMENT: Dr Gibbons ROTATOR CUFF REPAIR 08/2017 Right PROCEDURE: HISTORICAL ROTATOR CUFF REPAIR; COMMENT: Dr Chery HIP ARTHROPLASTY 2020 Bilateral PROCEDURE: HISTORICAL HIP REPLACEMENT; COMMENT: Total OTHER SURGICAL HISTORY 2021 Left PROCEDURE: PARTIAL MASTECTOMY BREAST SURGERY PROCEDURE: [place] UNLISTED PROCEDURE BREAST OTHER SURGICAL HISTORY 02/18/2022 [...] Brother Alive 1 brother Father (Age 85) [place] Maternal Grandfather Maternal Grandmother Mother (Age 72) [place] Mother's side Alive Paternal Grandfather Paternal Grandmother [...] 11/25/2024 1:15 PM EDT Office Visit Pulmonolgy [facility] [address] [phone] Gerry Jimenez MD [address] [address] 01/20/2025 1:00 PM EDT Office Visit General Surgery - [place] [address] [facility] [address] [place] [phone] Andrzej Coles MD 175 [facility] [address] [place] [address] 03/19/2025 1:00 PM EDT Appointment Radiology Department - [address] [phone] Health Maintenance Due Date Last Done Comments RSV Immunization Adult Patients (1 - Risk 60-74 years 1-dose series) [...] PCV) 09/17/2023 09/16/2022 COVID-19 Vaccine (4 - season) 2024 07/06/2021, 10/16/2020, 09/25/2020 Breast Cancer [...] age to complete this topic Meningococcal B Vaccine Aged Out No l onger eligible based on patient's age to complete this topic RSV Immunization Patients Under 20 months Aged Out No longer eligible based on patient's age to complete this topic Varicella Vaccines Aged Out No longer eligible based on patient's age to complete this topic Medical Devices Implanted Type Area Plumbing And Heating Mechanic Device Identifier Shelf Expiration Date Model / Serial / Lot Shell Trident Ii E 52mm 5 Screw Hole Cluster Tritanium - [id number] Implanted:Qty: 1 on 08/06/2020 by Bryant Delcid MD Right: Hip [employer] [id number] 02/11/2025 702-04-52E / / [id number] Screw Trident Ii 30mm 6.5mm Low Profile Hexagonal Bone - [id number] Implanted:Qty: 1 on 08/06/2020 by Bryant Delcid MD Right: Hip [employer] [id number] 02/10/2025 2013-3378 / / 29FH Insert Trident 10d E 36mm X3 Acetabular Hip - [id number] Implanted:Qty: 1 on 08/06/2020 by Bryant Delcid MD Right: Hip [employer] [id number] 05/07/2022 623-10-36E / / [id number] Screw Bone Trident Ii L20 Mm Od6.5 Mm Low Profile Hexa - [id number] Implanted:Qty: 1 on 08/06/2020 by Bryant Delcid MD Right: Hip [employer] [id number] 02/15/2025 8826-3630 / / 2BDE Stem Hip Neck Angle 127 Degree Accolade Ii Sz #3 - [id number] Implanted:Qty: 1 on 08/06/2020 by Bryant Delcid MD Right: Hip [employer] [id number] 06/05/2025 8547-1730 / / [id number] Head V40 -2.5mm 36mm Biolox Delta Femoral Hip - [id number] Implanted:Qty: 1 on 08/06/2020 by Bryant Delcid MD Right: Hip [employer] [id number] 04/16/2025 6570-0-436 / / [id number] Procedures Procedure Name Priority Date/Time Associated Diagnosis Comments EXTERNAL CLINICAL LAB 08/09/2024 DIAGNOSTIC MAMMOGRAPHY INCLUDING CAD BILATERAL Routine 03/08/2024 [...] Maintenance Results * External clinical lab (08/09/2024) Provider [facility] LAB BLOOD ORDERABLES Fin al Result * DIAGNOSTIC MAMMOGRAPHY INCLUDING CAD BILATERAL (03/08/2024 [...] mg/dL Blood Venous blood specimen / Unknown [facility] Provider LAB BLOOD ORDERABLES Doris l Result [...] should be classified as having osteopenia. [facility] Department of Internal Medicine recommends using National [...] Monterroso shouldbe classified as having osteopenia. [facility] Department of Internal Medicine recommendsusing National Osteoporosis [...] fracture risk by FRAX. Vishal Tolentino MD [facility] [place]ED[place] Final Resul t * Falls Risk Assessment (09/16/2022) [facility] Falls Risk Assessment abstracted Historical Provider HEALTH MAINTENANCE Final Result * Depression Screening (09/16/2022) [facility] Depression Screening abstracted Historical Provider HEALTH MAINTENANCE Final Result * Colonoscopy (10/06/2021) [facility] Colonoscopy no interpretation , abstracted Anatomical Region Laterality Modality Other us Historical Provider HEALTH MAINTENANCE Final Result from Last 3 Months or Most Recently Relevant to Health Maintenance Insurance [place] Advance Directives Documents on File Type Date Recorded Patient Php Web Developer Expl anation Health Care Decision (hx) [...] (hx) 04/05/2021 AD THAKUR DIRECTIVE Care Teams Cupola Charger Insulation Relationship Specialty Start Date End Date Vishal Tolentino MD [address] [place] [address] PCP - General Internal Medicine 05/20/24
--- OUTSIDE RECORDS SUMMARY | 2024-10-24 17:09 | XMS_ITS | Clinical Summary ---
Author Organization [facility] Address [address] [place] [address] Care Team Providers Care Metal Bonding Helper Name Role Phone Unavailable Primary Care Provider [...]
== END 2024-10-24 15:38 | disposition home or self-care (01) ==
LOC: HO.RHES 14:25
PROVIDERS: PCP Internal Medicine; Visit Provider Internal Medicine Rheumatology
DX: M06.09 Rheumatoid arthritis without rheumatoid factor, multiple sites (principal); S39.012A Strain of muscle, fascia and tendon of lower back, initial encounter; Z79.899 Other long term (current) drug therapy
CPT/HCPCS: 99214; G2211

== ENCOUNTER 2024-10-24 14:24 | Outpatient (REF) | payer MEDICARE, SELFPAY ==
[2024-10-24 17:34] LABS: MANUAL DIFF FLAG NO
[2024-10-24 17:47] LABS: Basophils Percent Auto 0.9 % (0-2); Eosinophils Absolute Auto 0.2 X10*3/uL (0.0-0.4); Eosinophils Percent Auto 3.9 % (0-4); Hematocrit 37.2 % (37.0-47.0); Hemoglobin 12.8 g/dl (12.0-16.0); Imm Gran Abs Auto 0.01 X10*3/uL (0.00-0.03); Imm Gran Pct Auto 0.2 % (0.0-0.4); Lymphocytes Absolute Auto 0.9 X10*3/uL (1.2-4.9); Lymphocytes Percent Auto 19.9 % (20-40); Mean Corpuscular HGB Conc 34.4 g/dl (31.0-35.0); Mean Corpuscular Hemoglobin 33.3 pg (27.0-33.0); Mean Corpuscular Volume 96.9 fL (80.0-98.0); Mean Platelet Volume 9.1 fL (9.4-12.3); Monocytes Absolute Auto 0.3 X10*3/uL (0.1-1.2); Monocytes Percent Auto 6.6 % (2-11); Neutrophils Absolute Auto 3.1 x10*3/uL (2.0-8.3); Neutrophils Percent Auto 68.5 % (45-73); Platelet Count 222 X10*3/uL (160-400); Red Blood Count 3.84 X10*6/uL (4.20-5.50); White Blood Count 4.6 X10*3/uL (4.8-10.8)
--- OUTSIDE RECORDS SUMMARY | 2024-10-24 17:49 | XMS_ITS | Clinical Summary ---
Author Organization [facility] Address [address] [place] [address] Care Team Providers Care Snack Stewardess Name Role Phone Unavailable Primary Care Provider [...]
--- OUTSIDE RECORDS SUMMARY | 2024-10-24 17:49 | XMS_ITS | Clinical Summary ---
Author Organization [facility] Address [address] [place] [address] Care Team Providers Care Optician Name Role Phone Vishal Tolentino MD Primary Care Provider [phone] Allergies Active Allergy Reactions Criticality Noted Date [...] Status Comments Brother Alive Father (Age 87) [place] Mother (Age 72) [place] Sister 1 5 Alive Sister 2 (Age [...] this topic Medical Devices Implanted Type Area Rock Wool Applicator Device Identifier Shelf Expiration Date Model / Serial / Lot Freeman Sut 5.5mm Fullthrd Med Insite Preld Frc Fbr Sprt Peek - [id number] - [id number] Implanted:Qty : 1 on 09/06/2017 by Ari Serrano [place] [facility] [place] Right: Shoulder [employer] 04/12/2020 [id number] / / [id number] Freeman Sut 5.5mm Fullthrd Med Insite Preld Frc Fbr Sprt Peek - 998162 - [id number] Implanted:Qty : 1 on 09/06/2017 by Ari Serrano [place] [facility] Right: Shoulder [employer] 06/29/2019 [id number] / / [id number] Freeman Swivelock 19.1mm 4.75mm Clsd Eyelet Vent Peek - 072075 - [id number] Implanted:Qty : 1 on 09/06/2017 by Ari Serrano [place] [facility] Right: Shoulder [employer] 04/15/2022 AR-2324PS / / [id number] Shell Trident Ii E 52mm 5 Screw Hole Cluster Tritanium - 608104 - [id number] Implanted:Qty : 1 on 08/06/2020 by Bryant Delcid [place] [facility] Right: Hip [employer] [id number] 02/11/2025 702-04-52E / / [id number] Screw Trident Ii 30mm 6.5mm Low Profile Hexagonal Bone - 486860 - [id number] Implanted:Qty : 1 on 08/06/2020 by Bryant Delcid [place] [facility] Right: Hip [employer] [id number] 02/10/2025 8530-2117 / / 29FH Insert Trident 10d E 36mm X3 Acetabular Hip - 320045 - [id number] Implanted:Qty : 1 on 08/06/2020 by Bryant Delcid [place] [facility] Right: Hip [employer] [id number] 05/07/2022 623-10-36E / / [id number] Screw Bone Trident Ii L20 Mm Od6.5 Mm Low Profile Hexa - 305924 - [id number] Implanted:Qty : 1 on 08/06/2020 by Bryant Delcid MD [place] [facility] Right: Hip [employer] [id number] 02/15/2025 5728-0092 / / 2BDE Stem Hip Neck Angle 127 Degree Accolade Ii Sz #3 - 888284 - [id number] Implanted:Qty : 1 on 08/06/2020 by Bryant Delcid MD [place] [facility] [place] [facility] Right: Hip [employer] [id number] 06/05/2025 2020-1287 / / [id number] Head V40 -2.5mm 36mm Biolox Delta Femoral Hip - 804967 - [id number] Implanted:Qty : 1 on 08/06/2020 by Bryant Delcid MD [place] [facility] [place] [facility] Right: Hip [employer] [id number] 04/16/2025 6570-0-436 / / [id number] Advance Directives For more information, please contact: [phone] Latest Code Status on File Code Status [...] way: discussion with patient . Care Teams Optician Relationship Specialty Start Date End Date Vishal Tolentino MD PCP - General Internal Medicine 07/29/20
--- OUTSIDE RECORDS SUMMARY | 2024-10-24 17:49 | XMS_ITS | Clinical Summary ---
Author Organization [place] [address] Diana mckinley [facility] Building Address [address] [facility] [place] [address] Phone Care Team Providers Care Water Vessel Captain Name Role Phone Vishal Tolentino MD Primary Care Provider [phone] Allergies Active Allergy Reactions Criticality Noted Date [...] Type Department Care Team Description 08/19/2024 Telephone Elevator Pilot - [address] [phone] Catrachita Miramontes [place] Medicare Annual Wellness Visit Subsequent (AWV DUE 2024) 08/14/2024 4:00 PM EST Office Visit Internal Medicine - [address] [phone] Denise Dey DO Cough, unspecified type (Primary Dx); Elevated BP without diagnosis of hypertension 08/08/2024 Telephone Internal Medicine - [address] [phone] Vishal Tolentino MD Neutropenia 07/29/2024 1:00 PM EST Office Visit General Surgery - [place] [address] [place] [address] Andrzej Coles MD History of [...] Surgery Date Site/Laterality Comments APPENDECTOMY 2002 PROCEDURE: [place] APPENDECTOMY CARPAL TUNNEL RELEASE R 07/29/12 Dr Gibbons PROCEDURE: [place] NEUROPLASTY &/TRANSPOS MEDIAN NRV CARPAL TUNNE; COMMENT: ulnar decomp cubital tunnel decompression CARPAL TUNNEL RELEASE 02/2018 Left PROCEDURE: [place] NEUROPLASTY &/TRANSPOS MEDIAN NRV CARPAL TUNNE; COMMENT: Dr Gibbons OTHER SURGICAL HISTORY 02/2018 Left PROCEDURE: [place] NEUROPLASTY &/TRANSPOSITION ULNAR NERVE ELBOW; COMMENT: Dr Gibbons ROTATOR CUFF REPAIR 08/2017 Right PROCEDURE: HISTORICAL ROTATOR CUFF REPAIR; COMMENT: Dr Chery HIP ARTHROPLASTY 2020 Bilateral PROCEDURE: HISTORICAL HIP REPLACEMENT; COMMENT: Total OTHER SURGICAL HISTORY 2021 Left PROCEDURE: PARTIAL MASTECTOMY BREAST SURGERY PROCEDURE: [place] UNLISTED PROCEDURE BREAST OTHER SURGICAL HISTORY 02/18/2022 [...] Brother Alive 1 brother Father (Age 85) [place] Maternal Grandfather Maternal Grandmother Mother (Age 72) [place] Mother's side Alive Paternal Grandfather Paternal Grandmother [...] 11/25/2024 1:15 PM EDT Office Visit Pulmonolgy [facility] [address] [phone] Gerry Jimenez MD [address] [address] 01/20/2025 1:00 PM EDT Office Visit General Surgery - [place] 175 [facility] [address] [place] [phone] Andrzej Coles MD 175 [facility] [address] [place] [address] 03/19/2025 1:00 PM EDT Appointment Radiology Department - [address] [phone] Health Maintenance Due Date Last Done Comments [...] this topic Medical Devices Implanted Type Area Grassland Conservationist Device Identifier Shelf Expiration Date Model / Serial / Lot Shell Trident Ii E 52mm 5 Screw Hole Cluster Tritanium - [id number] Implanted:Qty: 1 on 08/06/2020 by Bryant Delcid MD Right: Hip [employer] [id number] 02/11/2025 702-04-52E / / [id number] Screw Trident Ii 30mm 6.5mm Low Profile Hexagonal Bone - [id number] Implanted:Qty: 1 on 08/06/2020 by Bryant Delcid MD Right: Hip [employer] [id number] 02/10/2025 7157-3096 / / 29FH Insert Trident 10d E 36mm X3 Acetabular Hip - [id number] Implanted:Qty: 1 on 08/06/2020 by Bryant Delcid MD Right: Hip [employer] [id number] 05/07/2022 623-10-36E / / [id number] Screw Bone Trident Ii L20 Mm Od6.5 Mm Low Profile Hexa - [id number] Implanted:Qty: 1 on 08/06/2020 by Bryant Delcid MD Right: Hip [employer] [id number] 02/15/2025 4055-4665 / / 2BDE Stem Hip Neck Angle 127 Degree Accolade Ii Sz #3 - [id number] Implanted:Qty: 1 on 08/06/2020 by Bryant Delcid MD Right: Hip [employer] [id number] 06/05/2025 2236-8074 / / [id number] Head V40 -2.5mm 36mm Biolox Delta Femoral Hip - [id number] Implanted:Qty: 1 on 08/06/2020 by Bryant Delcid MD Right: Hip [employer] [id number] 04/16/2025 6570-0-436 / / [id number] Procedures Procedure Name Priority Date/Time Associated Diagnosis [...] mg/dL Blood Venous blood specimen / Unknown [facility] Provider LAB BLOOD ORDERABLES Doris [...] should be classified as having osteopenia. [facility] Department of Internal Medicine recommends using National [...] Monterroso shouldbe classified as having osteopenia. [facility] Department of Internal Medicine recommendsusing National Osteoporosis [...] fracture risk by FRAX. Vishal Tolentino MD [facility] DXA PROCEDURES Final Resul t * Falls Risk Assessment (09/16/2022) [facility] Falls Risk Assessment abstracted Historical Provider HEALTH MAINTENANCE Final Result * Depression Screening (09/16/2022) [facility] Depression Screening abstracted Historical Provider HEALTH MAINTENANCE Final Result * Colonoscopy (10/06/2021) [facility] Colonoscopy no interpretation , abstracted Anatomical Region Laterality Modality Other us Historical Provider HEALTH MAINTENANCE Final Result from Last 3 Months or Most Recently Relevant to Health Maintenance Insurance [place] Advance Directives Documents on File Type Date Recorded Patient Provider Engagement Executive Expl anation Health Care Decision (hx) 04/08/2021 [...] (hx) 04/05/2021 AD THAKUR DIRECTIVE Care Teams Water Vessel Captain Relationship Specialty Start Date End Date Vishal Tolentino MD [address] [place] [address] PCP - General Internal Medicine 05/20/24
[2024-10-24 18:13] LABS: Alanine Aminotransferase 18 U/L (0-31); Aspartate Amino Transferase 32 U/L (5-31); C Reactive Protein < 0.04 mg/dL (< or = 0.50); Estimated Glomerular Filt Rate > 60
[2024-10-24 18:50] LABS: Erythrocyte Sedimentation Rate 4 MM/HR (0-20)
== END 2024-10-24 14:25 | disposition home or self-care (01) ==
LOC: HO.HKASLDS 14:24
PROVIDERS: PCP Internal Medicine; Visit Provider Internal Medicine Rheumatology
DX: M06.09 Rheumatoid arthritis without rheumatoid factor, multiple sites (principal); Z79.60 Long term (current) use of unspecified immunomodulators and immunosuppressants; Z79.899 Other long term (current) drug therapy; S39.012A Strain of muscle, fascia and tendon of lower back, initial encounter
CPT/HCPCS: 36415; 82565; 84450; 84460; 85025; 85652; 86140; 99212

== ENCOUNTER 2025-02-11 09:16 | Outpatient (AMB) | payer MEDICARE, SELFPAY ==
--- OUTSIDE RECORDS SUMMARY | 2024-11-27 09:00 | XMS_ITS ---
Author Organization [facility] Address [address] [address] Care Team Providers Care Cream Beater Name Role Phone Vishal Tolention Primary Care Provider Unavailabl AUBRIE Norman Unavailable [phone] REASON FOR VISIT 4-5 month Encounters Encounter Location Date Provider Diagnosis [facility] [address] [address] 11/27/2024 AUBRIE JURADO Plan Of Treatment No Information Progress Notes * Juan Carlos MONTERROSOineDOB: [birth year] (69 yo F)Acc No.[id number]:11/27/2024 Progress Note Patient: Marcelina PEREZ Provider: Eulalio Jurado DPM :1955 A ge:69 Y S ex:Female Date:11/27/2024 Address:[facility] [place] [facility] Pcp:Vishal Tolentino Subjective: * Chief Complaints: * 1 . 4-5 month. * Medical History: Objective: * Vitals: Assessment: Plan: * Treatment: * Billing Information: * Visit Code: * Procedure Codes: * Electronic signature of HARMONY JURADO D.P.M on 02/11/2025 at 09:43 AM EDT Sign off status: Pending * Provider: Eulalio Jurado DPM Date: 11/27/2024 Generated for Printi ng/Faxing/eTransmitting on: 02/11/2025 09:43 AM EDT
--- OUTSIDE RECORDS SUMMARY | 2025-02-11 09:43 | XMS_ITS | Clinical Summary ---
Author Organization [place] [address] Diana mckinley [facility] Building Address [address] [place] [address] Phone Care Team Providers Care Fire Investigator Name Role Phone Vishal Tolentino MD Primary Care Provider [phone] Allergies Active Allergy Reactions Criticality Noted Date Comments Amoxicillin 05/23/2022 Amoxicillin-Pot Clavulanate Diarrhea 08/17/19 13 nausea Medications azithromycin (ZITHROMAX) 250 mg tablet Take 2 tabs 1 hour prior to dental appointment 11/20/19 21 Active acetaminophen (TYLENOL 8 HOUR) 650 mg 8 hr tablet Take 1 Tablet by mouth every 8 hours as needed for Pain for up to 10 days. 09/17/19 23 Active folic acid (FOLVITE) 1 mg tablet Take 1,000 mcg by mouth daily. 01/29/20 22 Active methotrexate 2.5 mg tablet 1 (one) time per week Take 6 on Sundays03/26/20 22 Active traZODone (DESYREL) 50 mg tablet Take 1 tablet (50 mg total) by mouth at bedtime. 30 tablet 5 07/19/19 25 Active meloxicam (MOBIC) 15 mg tablet 11/14/19 25 Active albuterol HFA (PROAIR HFA ; PROVENTIL HFA ; VENTOLIN HFA) 90 mcg/actuation inhaler Inhale 2 puffs by mouth every 4 (four) hours if needed for wheezing. 6.7 g 2 11/26/19 25 026 Active Synthroid 75 mcg tablet TAKE ONE TABLET BY MOUTH EVERY DAY 90 tablet 01/08/20 25 Active gabapentin (NEURONTIN) 300 mg capsule TAKE ONE CAPSULE BY MOUTH TWICE A DAY 180 capsule 02/01/20 25 Active gabapentin (NEURONTIN) 300 mg capsule TAKE ONE CAPSULE BY MOUTH TWICE A DAY 180 capsule 1 08/08/19 25 025 Discontinued Active Problems Problem Noted Date Diagnosed Date [...] Encounters Date Type Department Care Team Description 01/03/2025 11:30 AM EDT - 01/03/2025 11:59 PM EDT [facility] [address] [place] [phone] Chronic obstructive pulmonary disease, unspecified COPD type ([facility] V24, CMS/[facility] V28) Discharge Disposition: Home or Self Care 11/25/2024 1:15 PM EDT Office Visit Pulmonolgy - [place] [address] [facility] [address] [place] [address] Gerry Jimenez MD Chronic obstructive pulmonary disease, unspecified COPD type (CMS/HCC V24, CMS/HCC V28) (Primary Dx) from Last 3 Months Immunizations Name Administration [...] Surgery Date Site/Laterality Comments APPENDECTOMY 2002 PROCEDURE: [place] APPENDECTOMY CARPAL TUNNEL RELEASE R 07/29/12 Dr Gibbons PROCEDURE: [place] NEUROPLASTY &/TRANSPOS MEDIAN NRV CARPAL TUNNE; COMMENT: ulnar decomp cubital tunnel decompression CARPAL TUNNEL RELEASE 02/2018 Left PROCEDURE: [place] NEUROPLASTY &/TRANSPOS MEDIAN NRV CARPAL TUNNE; COMMENT: Dr Gibbons OTHER SURGICAL HISTORY 02/2018 Left PROCEDURE: [place] NEUROPLASTY &/TRANSPOSITION ULNAR NERVE ELBOW; COMMENT: Dr Gibbons ROTATOR CUFF REPAIR 08/2017 Right PROCEDURE: HISTORICAL ROTATOR CUFF REPAIR; COMMENT: Dr Chery HIP ARTHROPLASTY 2020 Bilateral PROCEDURE: HISTORICAL HIP REPLACEMENT; COMMENT: Total OTHER SURGICAL HISTORY 2021 Left PROCEDURE: PARTIAL MASTECTOMY BREAST SURGERY PROCEDURE: [place] UNLISTED PROCEDURE BREAST OTHER SURGICAL HISTORY 02/18/2022 [...] Brother Alive 1 brother Father (Age 85) [place] Maternal Grandfather Maternal Grandmother Mother (Age 72) [place] Mother's side Alive Paternal Grandfather Paternal Grandmother [...] Sign Reading Time Taken Comments Blood Pressure 132/60 11/25/2024 1:25 PM EDT Pulse 63 11/25/2024 1:25 PM EDT Temperature 36.8 C (98.2 F) 08/14/2024 3:54 PM EST Respiratory Rate 16 11/25/2024 1:25 PM EDT Oxygen Saturation 97% 11/25/2024 1:25 PM EDT Inhaled Oxygen Concentration - - Weight 51.8 kg (114 lb 3.2 oz) 11/25/2024 1:25 P M EDT Height 157.5 cm (5' 2 ) 11/25/2024 1:25 PM EDT Body Mass Index 20.89 11/25/2024 1:25 PM EDT Plan of Treatment Upcoming Encounters Date Type Department Care Team (Late st Contact Info) Description 02/13/2025 10:30 AM EDT Office Visit General Surgery - [place] [address] [phone] Andrzej Coles MD [address] [facility] [address] [place] [address] 03/19/2025 1:00 PM EDT Appointment Radiology Department [address] [address] 03/26/2025 1:00 PM EDT Office Visit Internal Medicine - [facility] [address] [place] [address] Vishal Tolentino MD [address] [place] [address] 11/26/2025 1:15 PM EDT Office Visit Pulmonolgy - [place] [address] [phone] Gerry Jimenez MD [address] [facility] [address] [place] [address] Health Maintenance Due Date Last Done Comments RSV Immunization Adult Patients (1 - Risk 60-74 years 1-dose series) 2015 DTaP,Tdap,and Td Vaccines (3 - Td or Tdap) 06/15/2021 06/15/2011, 04/10/2001 Zoster Vaccines (2 of 2) 11/03/2021 09/08/2021, 06/18 Hepatitis C Screening 06/22/2022 Social Influencers of Health Screening 06/22/2022 Falls Risk Assessment 09/17/2023 09/16/2022 Medicare Annual Wellness Visit 09/17/2023 09/16/2022 Pneumococcal Vaccine: 50+ Years (2 of 2 - PCV) 09/17/2023 09/16/2022 COVID-19 Vaccine ( - season) 2024 07/06/2021, 10/16/2020, 09/25/2020 Depression Screening 07/17/2024 09/16/2022 Influenza Vaccine (#1) 2025 , 04/18/2023, 05/27/2021, Additional history exists Breast Cancer Screening 03/08/2026 03/08/20 24, 03/08/2024, 02/28/2023, Additional history exists Cholesterol Screening (Lipid Panel) 12/11/2028 12/12/2023, 12/12/2023 Colorectal Cancer Screening: Colonoscopy 10/07/2031 10/06/2021 Osteoporosis Screening (Bone Density Screening) 05/18/2033 05/18/2023, 10/22/2020 HIB Vaccines Aged Out No longer eligi [...] this topic Medical Devices Implanted Type Area Weight Control Engineer Device Identifier Shelf Expiration Date Model / Serial / Lot Shell Trident Ii E 52mm 5 Screw Hole Cluster Tritanium - [id number] Implanted:Qty: 1 on 08/06/2020 by Bryant Delcid MD Right: Hip [employer] [id number] 02/11/2025 702-04-52E / / [id number] Screw Trident Ii 30mm 6.5mm Low Profile Hexagonal Bone - [id number] Implanted:Qty: 1 on 08/06/2020 by Bryant Delcid MD Right: Hip [employer] [id number] 02/10/2025 1306-2575 / / 29FH Insert Trident 10d E 36mm X3 Acetabular Hip - [id number] Implanted:Qty: 1 on 08/06/2020 by Bryant Delcid MD Right: Hip [employer] [id number] 05/07/2022 623-10-36E / / [id number] Screw Bone Trident Ii L20 Mm Od6.5 Mm Low Profile Hexa - [id number] Implanted:Qty: 1 on 08/06/2020 by Bryant Delcid MD Right: Hip [employer] [id number] 02/15/2025 0324-0936 / / [id number] Stem Hip Neck Angle 127 Degree Accolade Ii Sz #3 - [id number] Implanted:Qty: 1 on 08/06/2020 by Bryant Delcid MD Right: Hip [employer] [id number] 06/05/2025 [id number] / / [id number] Head V40 -2.5mm 36mm Biolox Delta Femoral Hip - [id number] Implanted:Qty: 1 on 08/06/2020 by Bryant Delcid MD Right: Hip [employer] [id number] 04/16/2025 6570-0-436 / / [id number] Procedures Procedure Name Priority Date/Time Associated Diagnosis Comments XR CHEST 2 VIEWS Routine 01/03/2025 11:3 7 AM EDT Chronic obstructive pulmonary disease, unspecified COPD type (CMS/HCC V24, CMS/HCC V28) DIAGNOSTIC MAMMOGRAPHY INCLUDING CAD BILATERAL Routine 03/08/2024 [...] Recently Relevant to Health Maintenance Results * XR Chest 2 Views (01/03/2025 11:37 AM EDT) Anatomical Region Laterality Modality Body Radiographic Summer ging 01/03/2025 11:4 1 AM EDT Impressions 01/03/2025 11:43 AM EDT No acute pulmonary pathology. -------- FINAL REPORT -------- Dictated By: Ashleigh Salcedo Dictated Date: 01/03/2025 11:41 ET Assigned Physician: Ashleigh Salcedo Reviewed and Electronically Signed By: Ashleigh Salcedo Signed Date: 01/03/2025 11:43 ET Workstation ID: [id number] Transcribed By: Self Edit Transcribed Date: 01/03/2025 11:41 ET Narrative 01/03/2025 11:43 AM EDT CHEST, TWO VIEWS HISTORY: Dyspnea on exertion.. TECHNIQUE: Frontal and lateral views of the chest. PRIOR: None. FINDINGS: The lungs are clear. No pleural effusion is seen. No pneumothorax is seen. The cardiac diameter is within normal limits. No acute or aggressive appearing bony abnormalities are seen. There is moderately advanced scoliosis and degenerative change of the spine. There is mild degenerative change of the AC joints. There are surgical clips in the left breast. Procedure Note Ashleigh Salcedo MD - 01/03/2025 CHEST, TWO VIEWS HISTORY: Dyspnea on exertion.. TECHNIQUE: Frontal and lateral views of the chest. PRIOR: None. FINDINGS: The lungs are clear. No pleural effusion is seen. No pneumothorax is seen. The cardiac diameter is within normal limits. No acute or aggressive appearing bony abnormalities are seen. There ismoderately advanced scoliosis and degenerative change of the spine. Thereis mild degenerative change of the AC joints. There are surgical clips in the left breast. IMPRESSION: No acute pulmonary pathology. -------- FINAL REPORT -------- Dictated By: Ashleigh Salcedo Dictated Date: 01/03/2025 11:41 ET Assigned Physician: Ashleigh Salcedo Reviewed and Electronically Signed By: Ashleigh Salcedo Signed Date: 01/03/2025 11:43 ET Workstation ID: [id number] Transcribed By: Self Edit Transcribed Date: 01/03/2025 11:41 ET us Gerry Jimenez MD IMG XR PROCEDURES Final Result * DIAGNOSTIC MAMMOGRAPHY INCLUDING CAD BILATERAL [...] left MLO views of the left breast. Compared with priors. Reviewed with CAD. There is stable postoperative and postradiation changes in the left periareolar area. There is no suspicious masses, microcalcifications or architectural distortion. Conclusions: Stable post lumpectomy/radiation changes in the left breast. No new suspicious abnormalities. Follow-up mammogram in 1 year returning to the [...] mg/dL Blood Venous blood specimen / Unknown us Historical Provider LAB BLOOD ORDERABLES Drois mckinley Result * DXA BONE DENSITY STUDY 1+ SITS AXIAL SKEL (05/18/2023 11:30 AM EDT) Anatomical Region Laterality Modality Bone Densitometr y 05/05/2023 9:43 AM EDT Narrative 05/18/2023 5:40 PM EDT BONE DENSITY Lumbar Spine T-score is -0.2 (SD relative to 20-29 y/o adult) Z-score is +1.8 (SD relative to age matched peers) This is normal by criteria defined by the WHO. Left WRIST T-score is -1.4 Z-score is +0.5 This is consistent with osteopenia by criteria defined by the WHO. Comparison exam(s): significant increase in bone density of lumbar spine when compared to most recent bone density examination Confidence level is +/-95%. Impression: Based on the World Health Organization criteria, Marcelina Monterroso should be classified as having osteopenia. The [facility] Department of Internal Medicine recommends [...] Monterroso shouldbe classified as having osteopenia. The [facility] Department of Internal Medicine recommendsusing [...] fracture risk by FRAX. Vishal Tolentino MD [facility] DXA PROCEDURES Final Resul t * Falls Risk Assessment (09/16/2022) [facility] Falls Risk Assessment abstracted Historical Provider HEALTH MAINTENANCE Final Result * Depression Screening (09/16/2022) Depression Screening abstracted us Historical Provider HEALTH MAINTENANCE Final Result * Colonoscopy (10/06/2021) Pathologist [facility] Colonoscopy no interpretation , abstracted Anatomical Region Laterality Modality Other us Historical Provider HEALTH MAINTENANCE Final Result from Last 3 Months or Most Recently Relevant to Health Maintenance Insurance [employer] [place] [employer] Advance Directives Documents on File Type Date Recorded Patient Snaker Driving Horses Expl anation Health Care Decision (hx) 04/08/2021 [...] (hx) 04/05/2021 AD THAKUR DIRECTIVE Care Teams Fire Investigator Relationship Specialty Start Date End Date Vishal Tolentino MD [address] [place] [address] PCP - General Internal Medicine 05/20/24
--- OUTSIDE RECORDS SUMMARY | 2025-02-11 09:43 | XMS_ITS | Clinical Summary ---
Author Organization [facility] Address [address] [place] [address] Care Team Providers Care Tool Room Attendant Name Role Phone Unavailable Primary Care Provider Unavailabl e Social History Tobacco Use Types Packs/Day Years Used Date Smoking Tobacco: Never Assessed Comments Unknown Sex and Gender Information Value Date Recorded Sex Assigned at Not on file Legal Sex Female 9:48 AM EDT Gender Identity Not on file Sexual Orientation [...]
--- OUTSIDE RECORDS SUMMARY | 2025-02-11 09:43 | XMS_ITS | Clinical Summary ---
Author Organization [facility] Address [address] [place] [address] Care Team Providers Care Warehouse Operator Name Role Phone Vishal Tolentino MD Primary Care Provider [phone] Allergies Active Allergy Reactions Criticality Noted Date [...] Status Comments Brother Alive Father (Age 87) [place] Mother (Age 72) [place] Sister 1 5 Alive Sister 2 (Age [...] 63 08/29/2022 10:09 AM EST Temperature 36.9 C (98.4 F) 08/29/2022 10:09 AM EST Respiratory Rate 18 08/08/2020 7:32 AM EST [...] or Tdap) 06/15/2021 06/15/2011 COVID-19 Vaccine ( - season) 2024 07/06/2021, 10/16/2020, 09/25/2020 Influenza Vaccine (#1) 2025 , 08/09/2019, 06/12/2018, Additional history exists RSV Adult > 60+ Yrs or (1 - 1-dose 75+ series) 2030 Hepatitis B Vaccines Aged Out No long er eligible based on patient's age to complete this topic RSV Ped < 20 months Aged Out No longe r eligible based on patient's age to complete this topic Medical Devices Implanted Type Area Freelance Programmer/App Developer Device Identifier Shelf Expiration Date Model / Serial / Lot [place] Sut 5.5mm Fullthrd Med Insite Preld Frc Fbr Sprt Peek - [id number] - [id number] Implanted:Qty : 1 on 09/06/2017 by Ari Serrano MD at [facility] Right: Shoulder [employer] 04/12/2020 [id number] / / [id number] [place] Sut 5.5mm Fullthrd Med Insite Preld Frc Fbr Sprt Peek - [id number] - [id number] Implanted:Qty : 1 on 09/06/2017 by Ari Serrano MD at [facility] Right: Shoulder [employer] 06/29/2019 [id number] / / [id number] [place] 19.1mm 4.75mm Clsd Eyelet Vent Peek - [id number] - [id number] Implanted:Qty : 1 on 09/06/2017 by Ari Serrano MD at [facility] Right: Shoulder [employer] 04/15/2022 [id number] / / [id number] Shell Trident Ii E 52mm 5 Screw Hole Cluster Tritanium - [id number] - [id number] Implanted:Qty : 1 on 08/06/2020 by Bryant Delcid MD at [facility] Right: Hip [employer] [id number] 02/11/2025 702-04-52E / / [id number] Screw Trident Ii 30mm 6.5mm Low Profile Hexagonal Bone - [id number] - [id number] Implanted:Qty : 1 on 08/06/2020 by Bryant Delcid MD at [facility] and Med Right: Hip [employer] [id number] 02/10/2025 6772-0285 / / 29FH Insert Trident 10d E 36mm X3 Acetabular Hip - [id number] - [id number] Implanted:Qty : 1 on 08/06/2020 by Bryant Delcid MD at [facility] and Med Right: Hip [employer] [id number] 05/07/2022 623-10-36E / / [id number] Screw Bone Trident Ii L20 Mm Od6.5 Mm Low Profile Hexa - [id number] - [id number] Implanted:Qty : 1 on 08/06/2020 by Bryant Delcid MD at [facility] Right: Hip [employer] [id number] 02/15/2025 7585-5077 / / [id number] Stem Hip Neck Angle 127 Degree Accolade Ii Sz #3 - [id number] - [id number] Implanted:Qty : 1 on 08/06/2020 by Bryant Delcid MD at [facility] and [facility] Right: Hip [employer] [id number] 06/05/2025 9750-9091 / / [id number] Head V40 -2.5mm 36mm Biolox Delta Femoral Hip - 882332 - [id number] Implanted:Qty : 1 on 08/06/2020 by Bryant Delcid MD at [facility] Right: Hip [employer] [id number] 04/16/2025 6570-0-436 / / [id number] Advance Directives For more information, please contact: [phone] Latest Code Status on File Code Status [...] way: discussion with patient . Care Teams Warehouse Operator Relationship Specialty Start Date End Date Vishal Tolentino MD PCP - General Internal Medicine 07/29/20
--- NOTE | 2025-02-11 09:50 | MHC.OFFVIS ---
Vital Signs 02/11/25 09:51 Height 5 ft 2 in Weight 112 lb 4 oz BMI 20.5 BP 134/60 Blood Pressure Location Rt brachial Position Sitting Pulse 91 Pulse Source Pulse Oximeter Pulse Oximetry (%) 96 Oxygen Delivery Method Room Air Intake Visit Reasons: follow up Intake Note: Patient presents today for follow up on RA. Allergies amoxicillin Allergy (Mild, Verified 02/11/25 09:51) Diarrhea clavulanic acid (From Augmentin) Allergy (Mild, Verified 02/11/25 09:51) Stomach Upset HPI HPI follow up: Details: MS rowe Takes meloxicam 15mg daily for shoulder and back pain. She did not go to PT. Takes tylenol 650mg daily [facility] Medical History Trigger finger Carpal tunnel syndrome Surgical History History of hip surgery Hx of tonsillectomy Physical Exam Vital Signs: Last Vital Signs Pulse 91 02/11/25 09:51 BP 134/60 02/11/25 09:51 Pulse Ox 96 02/11/25 09:51 Oxygen Delivery Method Room Air 02/11/25 09:51 BMI result Body Mass Index 20.5 Const Other: General: Comfortable CVS: RRR Respiratory: clear to auscultation bilaterally. Good respiratory effort Skin: No lesions seen MSK: No tender joints. No synovitis. She is able to make a fist with both hands. Normal range of motion of upper extremities. Limited full external rotation of bilateral hips. Normal knee flexion. No MTP tenderness. Tender to palpate lower right paraspinal muscles. Good lumbar flexion. No SI joint tenderness. Negative SHAINA. Scoliosis present. Assessment & Plan Assessment & Plan (1) Rheumatoid arthritis: Comment: In remission on monotherapy with methotrexate. Methotrexate dose was reduced from 15 mg once weekly to 10 mg once weekly due to leukopenia and mild macrocytic anemia, which has improved on October labs. Rheumatology history: Seronegative, erosive. Right 3rd MCP cortisone injection 01/03/2022, and right 2nd MCP 07/2024. She has a possible sagittal band tear right 2nd MCP. She has good range of motion and function of her right hand. MTX dose reduced from 15 mg once weekly to 10 mg once weekly due to leukopenia and mild macrocytic anemia 09/2024. Code(s): M06.9 - Rheumatoid arthritis, unspecified Category: Medical Qualifiers: Rheumatoid arthritis location: multiple sites Rheumatoid factor presence: without rheumatoid factor Qualified Code(s): M06.09 - Rheumatoid arthritis without rheumatoid factor, multiple sites Plan: Labs for disease and drug monitoring ordered this visit Continue methotrexate 10 mg once weekly Continue folic acid 1 mg daily Return to clinic in 3 months (2) Strain of lumbar paraspinal muscle: Comment: Discussed conservative management. She also has scoliosis on exam. Code(s): S39.012A - Strain of muscle, fascia and tendon of lower back, initial encounter Category: Medical Qualifiers: Encounter type: initial encounter Qualified Code(s): S39.012A - Strain of muscle, fascia and tendon of lower back, initial encounter Plan: Try lidocaine past Try heat b.i.d. PT ordered She will take meloxicam 15 mg PRN pain. She will call office for refill when needed. 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: Code(s): Z79.899 - Other automobile mechanic apprentice (current) drug therapy Category: Medical Plan: See above Orders: Orders Erythrocyte Sedimentation Rate Today Z79.60 - retirement (current) use of unspecified immunomodulators and immunosuppressants C Reactive Protein Today Z79.60 - retirement (current) use of unspecified immunomodulators and immunosuppressants Creatinine Today Z79.60 - certified scrub tech (current) use of unspecified immunomodulators and immunosuppressants Alanine Aminotransferase Today Z79.60 - certified scrub tech (current) use of unspecified immunomodulators and immunosuppressants Complete Blood Count Auto Diff Today Z79.60 - retirement (current) use of unspecified immunomodulators and immunosuppressants Aspartate Amino Transferase Today Z79.60 - retirement (current) use of unspecified immunomodulators and immunosuppressants Medications: Changed From methotrexate sodium 10 mg (4 x 2.5 mg) PO QWEEK 44 tabs 0RF To methotrexate sodium 10 mg (4 x 2.5 mg) PO QWEEK 48 tabs 0RF 12 weeks Coding Level of Care Code Est Pt Level 4 (81777) Complex EM visit Add On G2211 Diagnoses Rheumatoid arthritis of multiple sites with negative rheumatoid factor M06.09 Rheumatoid arthritis location: multiple sites Rheumatoid factor presence: without rheumatoid factor Strain of lumbar paraspinous muscle, initial encounter S39.012A Encounter type: initial encounter Other fpc (current) drug therapy Z79.899
[2025-02-11 09:51] VITALS: BP 134/60; PULSE 91; O2SAT 96; BMI 20.5
== END 2025-02-11 10:56 | disposition home or self-care (01) ==
LOC: HO.RHES 09:16
PROVIDERS: PCP Internal Medicine; Visit Provider Internal Medicine Rheumatology
DX: M06.09 Rheumatoid arthritis without rheumatoid factor, multiple sites (principal); S39.012A Strain of muscle, fascia and tendon of lower back, initial encounter; Z79.899 Other long term (current) drug therapy
CPT/HCPCS: 99214; G2211

== ENCOUNTER 2025-02-11 09:16 | Outpatient (REF) | payer MEDICARE, SELFPAY ==
--- OUTSIDE RECORDS SUMMARY | 2025-02-11 12:26 | XMS_ITS ---
Author Name [facility] [place] Organization Unknown Encounters Encounter Type Encounter Reason Primary Diagnosis Location Date Ambulatory [facility] 11/15/2022 Ambulatory [facility] 11/15/2022 Ambulatory [facility] 11/15/2022 Care Team Organization Name Specialty Phone Email Start Date End Da te [facility] Vishal Tolentino Primary Care 11/21/2022 03/04/20 24
[2025-02-11 13:31] LABS: MANUAL DIFF FLAG NO
[2025-02-11 13:36] LABS: Hematocrit 38.6 % (37.0-47.0); Hemoglobin 12.6 g/dl (12.0-16.0); Imm Gran Abs Auto 0.02 X10*3/uL (0.00-0.03); Imm Gran Pct Auto 0.5 % (0.0-0.4); Lymphocytes Absolute Auto 0.6 X10*3/uL (1.2-4.9); Mean Corpuscular HGB Conc 32.6 g/dl (31.0-35.0); Mean Corpuscular Hemoglobin 32.6 pg (27.0-33.0); Mean Corpuscular Volume 99.7 fL (80.0-98.0); NRBC Abs Auto 0.000 X10*3/uL (0.0-0.012); NRBC Pct Auto 0.0 /100WBC (0.0-0.2); Platelet Count 187 X10*3/uL (160-400); Red Blood Count 3.87 X10*6/uL (4.20-5.50); White Blood Count 3.8 X10*3/uL (4.8-10.8)
[2025-02-11 13:55] LABS: Alanine Aminotransferase 20 U/L (0-31); Aspartate Amino Transferase 30 U/L (5-31); Estimated Glomerular Filt Rate > 60
== END 2025-02-11 09:17 | disposition home or self-care (01) ==
LOC: HO.HKASLDS 09:16
PROVIDERS: PCP Internal Medicine; Visit Provider Internal Medicine Rheumatology
DX: S39.012A Strain of muscle, fascia and tendon of lower back, initial encounter (principal); M06.09 Rheumatoid arthritis without rheumatoid factor, multiple sites; Z79.60 Long term (current) use of unspecified immunomodulators and immunosuppressants; Z79.631 Long term (current) use of antimetabolite agent; Z79.1 Long term (current) use of non-steroidal anti-inflammatories (NSAID); Z79.899 Other long term (current) drug therapy; X58.XXXA Exposure to other specified factors, initial encounter
CPT/HCPCS: 36415; 82565; 84450; 84460; 85025; 85652; 86140; 99212

== ENCOUNTER 2025-05-21 10:36 | Outpatient (AMB) | payer MEDICARE, SELFPAY ==
--- OUTSIDE RECORDS SUMMARY | 2024-11-08 09:30 | XMS_ITS ---
Author Organization [facility] Address [address] [address] Care Team Providers Care Boilers And Pressure Vessels Inspector Name Role Phone Vishal Tolentino Primary Care Provider Unavailabl AUBRIE Norman [phone] REASON FOR VISIT 4-5 month Encounters Encounter Location Date Provider Diagnosis [facility] [address] [address] 11/08/2024 AUBRIE JURADO Plan Of Treatment No Information Progress Notes * Juan Carlos MONTERROSOineDOB: [birth year] (69 yo F)Acc No.[id number]:11/08/2024 Progress Note Patient: Marcelina PEREZ Provider: Eulalio Jurado DPM :1955 A ge:69 Y S ex:Female Date:11/08/2024 Address:[facility] [place] [facility] Pcp:Vishal Tolentino Subjective: * Chief Complaints: * 1 . 4-5 month. * Medical History: Objective: * Vitals: Assessment: Plan: * Treatment: * Billing Information: * Visit Code: * Procedure Codes: * Electronic signature of HARMONY JURADO D.P.M on 05/21/2025 at 12:23 PM EST Sign off status: Pending * Provider: Eulalio Jurado DPM Date: 0 11/08/2024 Generated for Printi ng/Faxing/eTransmitting on: 1 07/21/2024 12:23 PM EST
--- OUTSIDE RECORDS SUMMARY | 2024-11-27 08:00 | XMS_ITS ---
Author Organization [facility] Address [address] [address] Care Team Providers Care Dispatcher Tow Truck Name Role Phone Vishal Tolentino Primary Care Provider Unavailabl AUBRIE Norman [phone] REASON FOR VISIT 4-5 month Encounters Encounter Location Date Provider Diagnosis [facility] [address] [address] 11/27/2024 AUBRIE JURADO Plan Of Treatment No Information Progress Notes * Juan Carlos MONTERROSOineDOB: [birth year] (69 yo F)Acc No.[id number]:11/27/2024 Progress Note Patient: Marcelina PEREZ Provider: Eulalio Jurado DPM :1955 A ge:69 Y S ex:Female Date:11/27/2024 Address:[facility] [place] [facility] Pcp:Vishal Tolentino Subjective: * Chief Complaints: * 1 . 4-5 month. * Medical History: Objective: * Vitals: Assessment: Plan: * Treatment: * Billing Information: * Visit Code: * Procedure Codes: * Electronic signature of HARMONY JURADO D.P.M on 05/21/2025 at 12:22 PM EST Sign off status: Pending * Provider: Eulalio Jurado DPM Date: 11/27/2024 Generated for Printi ng/Faxing/eTransmitting on: 07/21/2024 12:22 PM EST
--- NOTE | 2025-05-21 10:51 | A.OFFVIS_ITS ---
Vital Signs 05/21/25 10:53 Height 5 ft 2 in Weight 111 lb 12.39 oz BMI 20.4 BP 120/60 Blood Pressure Location Rt brachial Position Sitting Pulse 67 Pulse Source Pulse Oximeter Pulse Oximetry (%) 99 Oxygen Delivery Method Room Air Intake Visit Reasons: 3 Months Intake Note: Patient presents today for follow up on RA. Accompanied by: Self / Same As Patient Allergies amoxicillin Allergy (Mild, Verified 05/21/25 10:52) Diarrhea clavulanic acid (From Augmentin) Allergy (Mild, Verified 05/21/25 10:52) Stomach Upset HPI HPI 3 Months: Details: She is doing well. No recent infections. No joint swelling. She continues to have lower back/left buttocks pain. She did not go to PT when she was referred last year. [facility] Medical History Trigger finger Carpal tunnel syndrome Surgical History History of hip surgery Hx of tonsillectomy Physical Exam Vital Signs: Last Vital Signs Pulse 67 05/21/25 10:53 BP 120/60 05/21/25 10:53 Pulse Ox 99 05/21/25 10:53 Oxygen Delivery Method Room Air 05/21/25 10:53 BMI result Body Mass Index 20.4 Const Other: General: Comfortable CVS: RRR Respiratory: clear to auscultation bilaterally. Good respiratory effort Skin: No lesions seen MSK: No tender joints. No synovitis. She is able to make a fist with both hands. Normal range of motion of upper extremities. Limited full external rotation of bilateral hips. Normal knee flexion. No MTP tenderness. Tender to palpate left SI joint.. Good lumbar flexion. Kyphoscoliosis present. Assessment & Plan Assessment & Plan (1) Rheumatoid arthritis: Comment: In remission on monotherapy with methotrexate. Rheumatology history: Seronegative, erosive. Right 3rd MCP cortisone injection 01/03/2022, and right 2nd MCP 07/2024. She has a possible sagittal band tear right 2nd MCP. She has good range of motion and function of her right hand. MTX dose reduced from 15 mg once weekly to 10 mg once weekly due to leukopenia and mild macrocytic anemia 09/2024. Code(s): M06.9 - Rheumatoid arthritis, unspecified Category: Medical Qualifiers: Rheumatoid arthritis location: multiple sites Rheumatoid factor presence: without rheumatoid factor Qualified Code(s): M06.09 - Rheumatoid arthritis without rheumatoid factor, multiple sites Plan: Labs for disease and drug monitoring ordered this visit Continue methotrexate 10 mg once weekly Continue folic acid 1 mg daily Immunizations: She will obtain COVID-19 vaccine and flu shot. She will hold methotrexate the week she gets vaccinations. Return to clinic in 3 months (2) Other longterm (current) drug therapy: Code(s): Z79.899 - Other salvage determiner (current) drug therapy Category: Medical Plan: See above (3) Muscle strain of left gluteal region: Code(s): S76.012A - Strain of muscle, fascia and tendon of left hip, initial encounter Category: Medical Plan: PT ordered Return to clinic in 3 months (4) Sacroiliac joint dysfunction of left side: Code(s): M53.3 - Sacrococcygeal disorders, not elsewhere classified Category: Medical Plan: PT ordered Return to clinic in 3 months Orders: Orders PT Evaluation and Treatment Today M41.9 - Scoliosis, unspecified, M53.3 - Sacrococcygeal disorders, not elsewhere classified, S76.012A - Strain of muscle, fascia and tendon of left hip, initial encounter Coding Level of Care Code Est Pt Level 4 (37022) Complex EM visit Add On G2211 Diagnoses Rheumatoid arthritis of multiple sites with negative rheumatoid factor M06.09 Rheumatoid arthritis location: multiple sites Rheumatoid factor presence: without rheumatoid factor Other longterm (current) drug therapy Z79.899 Muscle strain of left gluteal region S76.012A Sacroiliac joint dysfunction of left side M53.3
[2025-05-21 10:53] VITALS: BP 120/60; PULSE 67; O2SAT 99; BMI 20.4
--- OUTSIDE RECORDS SUMMARY | 2025-05-21 12:23 | XMS_ITS | Patient Health Record ---
Author Organization [facility] Address [address] [place] [address] Care Team Providers Care Architectural Practice Manager Name Role Phone Vishal Tolentino Primary Care Provider AUBRIE Farias Unavailable [phone] Allergies Allergen (clinical drug ingredient) Drug/Non Drug Allergy documented on EMR Reaction Allergy Type Onset Date Status amoxicillin Amoxicillin Unknown Drug Allergy Act da amoxicillin / clavulanate Augmentin Unknown Drug Allergy Active Reason For Referral No Information Medications Medication [...] TAKE ONE TABLET B Y MOUTH EVERY DAY; Duration: 30 Active traZODone HCl 50 MG 1 tablet at bedtime as needed Orally Once a day Active Cyclobenzaprine HCl 10 MG 1 tablet at be dtime as needed Orally Once a day Not-Taking Folic Acid 1 MG 1 tablet Orally Once a day Active Urea 40 % 1 application as needed Externally Once a day; Duration: 30 days Active Methotrexate Sodium 2.5 MG [...] 07/01/2024 Encounters Encounter Location Date Provider Diagnosis [facility] [address] [address] 07/01/2024 AUBRIE ALFARO Nail dystrophy L60.3 ; Onychomycosis B35.1 ; Skin hyperkeratosis L85.9 ; Pain in left toe(s) M79.675 and Pain in right toe(s) M79.674 [facility] [address] [address] 07/25/2024 AUBRIE ALFARO Assessments Encounter Date Diagnosis [...] toe(s) (ICD-10 - M79.674) Plan Of Treatment No Information Insurance Providers Payer Name Payer Address Payer Phone Subscriber Number Group Number Insured Name Patient Relationship to Insured Coverage Start Date Coverage End Date [facility] [address] [place] [phone] [id number] Marcelina Monterroso Self - patient is the [...] repair 08/2017 left partial mastectomy 2021 appendectomy 2003 right carpal tunnel ulnar decomp cubital tunnel [...]
--- OUTSIDE RECORDS SUMMARY | 2025-05-21 12:23 | XMS_ITS | Clinical Summary ---
Author Organization [facility] Address [address] [place] [address] Care Team Providers Care Occupational Therapy Asst Name Role Phone Vishal Tolentino MD Primary Care Provider [phone] Allergies Active Allergy Reactions Criticality Noted Date [...] Status Comments Brother Alive Father (Age 87) [place] Mother (Age 72) [place] Sister 1 5 Alive Sister 2 (Age [...] Tdap) 06/15/2021 06/15/2011 COVID-19 Vaccine ( - 2024- season) 2025 07/06/2021, 10/16/2020, 09/25/2020 Influenza Vaccine (#1) 2025 [...] this topic Medical Devices Implanted Type Area Agricultural Engineering Teacher Device Identifier Shelf Expiration Date Model / Serial / Lot Edmond Sut 5.5mm Fullthrd Med Insite Preld Frc Fbr Sprt Peek - [id number] - [id number] Implanted:Qty : 1 on 09/06/2017 [place] [facility] Right: Shoulder [employer] 04/12/2020 [id number] / / [id number] Edmond Sut 5.5mm Fullthrd Med Insite Preld Frc Fbr Sprt Peek - [id number] - [id number] Implanted:Qty : 1 on 09/06/2017 by Ari Serrano [place] [facility] Right: Shoulder [employer] 06/29/2019 [id number] / / [id number] Edmond Swivelock 19.1mm 4.75mm Clsd Eyelet Vent Peek - [id number] - [id number] Implanted:Qty : 1 on 09/06/2017 by Ari Serrano [place] [facility] Right: Shoulder [employer] 04/15/2022 [id number] / / [id number] Shell Trident Ii E 52mm 5 Screw Hole Cluster Tritanium - [id number] - [id number] Implanted:Qty : 1 on 08/06/2020 by Bryant Delcid [place] [facility] Right: Hip [employer] [id number] 02/11/2025 702-04-52E / / [id number] Screw Trident Ii 30mm 6.5mm Low Profile Hexagonal Bone - [id number] - [id number] Implanted:Qty : 1 on 08/06/2020 by Bryant Delcid [place] [facility] [place] Right: Hip [employer] [id number] 02/10/2025 [id number] / / [id number] Insert Trident 10d E 36mm X3 Acetabular Hip - [id number] - [id number] Implanted:Qty : 1 on 08/06/2020 by Bryant Delcid [place] [facility] Right: Hip [employer] [id number] 05/07/2022 623-10-36E / / [id number] Screw Bone Trident Ii L20 Mm Od6.5 Mm Low Profile Hexa - [id number] - [id number] Implanted:Qty : 1 on 08/06/2020 by Bryant Delcid [place] [facility] Right: Hip [employer] [id number] 02/15/2025 [id number] / / [id number] Stem Hip Neck Angle 127 Degree Accolade Ii Sz #3 - [id number] - [id number] Implanted:Qty : 1 on 08/06/2020 by Bryant Delcid [place] [facility] [place] [facility] Right: Hip [employer] [id number] 06/05/2025 8740-1600 / / [id number] Head V40 -2.5mm 36mm [employer] Delta Femoral Hip - [id number] - [id number] Implanted:Qty : 1 on 08/06/2020 by Bryant Declid [place] [facility] Right: Hip [employer] [id number] 04/16/2025 6570-0-436 / / [id number] Advance Directives For more information, please contact: [phone] Latest Code Status on File Code Status [...] way: discussion with patient . Care Teams Occupational Therapy Asst Relationship Specialty Start Date End Date Vishal Tolentino MD PCP - General Internal Medicine 07/29/20
--- OUTSIDE RECORDS SUMMARY | 2025-05-21 12:23 | XMS_ITS | Clinical Summary ---
Author Organization [place] [address] Diana mckinley [facility] Building Address [address] [place] [address] Phone Care Team Providers Care Marketing Agent Name Role Phone Vishal Tolentino MD Primary Care Provider [phone] Allergies Active Allergy Reactions Criticality Noted Date [...] TABLET BY MOUTH EVERY DAY 90 tablet 1 04/08/20 25 Active gabapentin (NEURONTIN) 300 mg capsule Take 1 capsule (300 mg total) by mouth 2 (two) times a day. 180 capsule 1 05/06/20 25 Active gabapentin (NEURONTIN) 300 mg capsule TAKE ONE CAPSULE BY MOUTH TWICE A DAY 180 capsule 02/01/20 25 025 Discontinued Active Problems Problem Noted [...] Encounters Date Type Department Care Team Description 04/11/2025 3:24 PM EDT - 04/11/2025 11:59 PM EDT Hospital Encounter Radiology Department [address] [address] Screening mammogram, encounter for Discharge Disposition: Home or Self Care 03/26/2025 1:00 PM EDT Office Visit Internal Medicine - [address] [phone] Vishal Tolentino MD Hypothyroidism, unspecified type (Primary Dx); Osteopenia, unspecified location; Collapsed vertebra, not elsewhere classified, cervical region, initial encounter for fracture (CMS/HCC V24, CMS/HCC V28); Lipoma of torso from Last 3 Months Immunizations Immunization Administration Dates Next Due Influenza Quadravalent, MDCK [...] Surgery Date Site/Laterality Comments APPENDECTOMY 2002 PROCEDURE: OR APPENDECTOMY CARPAL TUNNEL RELEASE R 07/29/12 Dr Gibbons PROCEDURE: OR NEUROPLASTY &/TRANSPOS MEDIAN NRV CARPAL TUNNE; COMMENT: ulnar decomp cubital tunnel decompression CARPAL TUNNEL RELEASE 02/2018 Left PROCEDURE: OR NEUROPLASTY &/TRANSPOS MEDIAN NRV CARPAL TUNNE; COMMENT: Dr Gibbons OTHER SURGICAL HISTORY 02/2018 Left PROCEDURE: OR NEUROPLASTY &/TRANSPOSITION ULNAR NERVE ELBOW; COMMENT: Dr Gibbons ROTATOR CUFF REPAIR 08/2017 Right PROCEDURE: HISTORICAL ROTATOR CUFF REPAIR; COMMENT: Dr Chery HIP ARTHROPLASTY 2020 Bilateral PROCEDURE: HISTORICAL HIP REPLACEMENT; COMMENT: Total OTHER SURGICAL HISTORY 2021 Left PROCEDURE: PARTIAL MASTECTOMY BREAST SURGERY PROCEDURE: OR UNLISTED PROCEDURE BREAST OTHER SURGICAL HISTORY 02/18/2022 [...] of skin DX:Ma lignant neoplasm of skin Breast cancer (CMS/HCC V24, CMS/HCC V28) Family History Medical History Relation Name Comments Breast cancer Aunt M. AUNT Diabetes Mother Hypertension Mother Colon cancer Neg Hx Ovarian cancer Neg Hx Relation Name Status Comments Aunt M. AUNT Mat Aunt with b ilat breast CA age onset 52 Brother Alive 1 brother Father (Age 85) [place] Maternal Grandfather Maternal Grandmother Mother (Age 72) [place] Mother's side Alive Paternal Grandfather Paternal Grandmother [...] Sexual Orientation Not on file Obstetrics History Para Term AB IAB SAB Ectopic Multiple Livin g Live Births 0 0 0 0 Last Filed Vital Signs Vital Sign Reading Time Taken Comments Blood Pressure 134/64 03/26/2025 1:05 PM EDT Pulse 80 03/26/2025 1:05 PM EDT Temperature 36.1 C (96.9 F) 02/13/2025 10:31 AM EDT Respiratory Rate 16 11/25/2024 1:25 PM EDT Oxygen Saturation 97% 11/25/2024 1:25 PM EDT Inhaled Oxygen Concentration - - Weight 49.9 kg (110 lb) 03/26/2025 1:05 PM EDT Height 157.5 cm (5' 2 ) 03/26/2025 1:05 PM EDT Body Mass Index 20.12 03/26/2025 1:05 PM EDT Plan of Treatment Upcoming Encounters Date Type Department Care Team (Late st Contact Info) Description 08/18/2025 11:00 AM EST Office Visit General Surgery - [address] [place] [address] Andrzje Coles MD [address] [place] [phone] 09/29/2025 1:00 PM EDT Office Visit Internal Medicine - [facility] [address] [place] [address] Vishal Tolentino MD [address] [place] [address] 11/26/2025 1:15 PM EDT Office Visit Pulmonology - [place] [address] [place] [address] Gerry Jimenez MD [address] [place] [address] Health Maintenance Due Date Last Done Comments RSV Immunization Adult Patients (1 - Risk 50-74 years 1-dose series) 2005 DTaP,Tdap,and Td Vaccines (3 - Td or Tdap) 06/15/2021 06/15/2011, 04/10/2001 Zoster Vaccines (2 of 2) 11/03/2021 09/08/2021, 06/18 Hepatitis C Screening 06/22/2022 Social Influencers of Health Screening 06/22/2022 Falls Risk Assessment 09/17/2023 09/16/2022 Medicare Annual Wellness Visit 09/17/2023 09/16/2022 Pneumococcal Vaccine: 50+ Years (2 of 2 - PCV) 09/17/2023 09/16/2022 Depression Screening 07/17/2024 09/16/2022 COVID-19 Vaccine ( - season) 2025 07/06/2021, 10/16/2020, 09/25/2020 Influenza Vaccine (#1) 2025 , 04/18/2023, 05/27/2021, Additional history exists Breast Cancer Screening 04/11/2027 04/11/20 25, 03/08/2024, 03/08/2024, Additional history exists Cholesterol Screening (Lipid Panel) 03/26/2030 03/26/2025, 12/12/2023, 12/12/2023 Colorectal Cancer Screening: Colonoscopy 10/07/2031 [...] this topic Medical Devices Implanted Type Area Exhaust And Muffler Fitter Device Identifier Shelf Expiration Date Model / Serial / Lot Shell Trident Ii E 52mm 5 Screw Hole Cluster Tritanium - [id number] Implanted:Qty: 1 on 08/06/2020 by Bryant Delcid MD Right: Hip [employer] [id number] 02/11/2025 702-04-52E / / [id number] Screw Trident Ii 30mm 6.5mm Low Profile Hexagonal Bone - [id number] Implanted:Qty: 1 on 08/06/2020 by Bryant Delcid MD Right: Hip [employer] [id number] 02/10/2025 7064-3257 / / 29FH Insert Trident 10d E 36mm X3 Acetabular Hip - [id number] Implanted:Qty: 1 on 08/06/2020 by Bryant Delcid MD Right: Hip [employer] [id number] 05/07/2022 623-10-36E / / [id number] Screw Bone Trident Ii L20 Mm Od6.5 Mm Low Profile Hexa - [id number] Implanted:Qty: 1 on 08/06/2020 by Bryant Delcid MD Right: Hip [employer] [id number] 02/15/2025 1818-5983 / / [id number] Stem Hip Neck Angle 127 Degree Accolade Ii #3 - [id number] Implanted:Qty: 1 on 08/06/2020 by Bryant Delcid MD Right: Hip [employer] [id number] 06/05/2025 [id number] / / [id number] Head V40 -2.5mm 36mm Biolox Delta Femoral Hip - [id number] Implanted:Qty: 1 on 08/06/2020 by Bryant Delcid MD Right: Hip [employer] [id number] 04/16/2025 6570-0-436 / / [id number] Procedures Procedure Name Priority Date/Time Associated Diagnosis Comments MG MAMMO DIGITAL SCREENING W SYD BILAT Routine 04/11/2025 3:47 PM EDT Screening mammogram, encounter for THYROID STIMULATING HORMONE Routine 03/26/2025 1:25 PM EDT Hypothyroidism, unspecified type ALANINE AMINOTRANSFERASE Routine 025 1:25 PM EDT Hypothyroidism, unspecified type ASPARTATE AMINOTRANSFERASE Routine 03/26/2025 1:25 PM EDT Hypothyroidism, unspecified type BASIC METABOLIC PANEL Routine 03/26/2025 1:25 PM EDT Hypothyroidism, unspecified type LIPID PANEL WITH REFLEX TO DIRECT LDL Routine 03/26/2025 1:25 PM EDT Hypothyroidism, unspecified type DXA BONE DENSITY STUDY 1+ SITS AXIAL SKEL Routine 05/18/2023 11:30 AM EDT Encounter for screening for osteoporosis DEPRESSION SCREENING Routine 09/16/2022 FALLS RISK ASSESSMENT Routine 09/16/2022 COLONOSCOPY Routine 10/06/2021 from Last 3 Months or Most Recently Relevant to Health Maintenance Results * MG Mammo Digital Screening w Syd bilat (04/11/2025 3:47 PM EDT) Anatomical Region Laterality Modality Breast Bilateral Mammography 04/16/2025 9:21 AM EDT Impressions 04/16/2025 9:45 AM EDT Benign. BI-RADS CATEGORY: 2 - BENIGN RECOMMENDATION: Screening bilateral mammogram is recommended in 1 year. Mammo Location: [facility], [address] [place] [address], [id number], . -------- FINAL REPORT -------- Dictated By: Ashleigh Salcedo Dictated Date: 04/16/2025 09:21 ET Assigned Physician: Ashleigh Salcedo Reviewed and Electronically Signed By: Ashleigh Salcedo Signed Date: 04/16/2025 09:45 ET Workstation ID: [id number] Transcribed By: Self Edit Transcribed Date: 04/16/2025 09:21 ET Narrative 04/16/2025 9:45 AM EDT CLINICAL: 69 years old, Female, routine annual exam. 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 TECHNIQUE: Bilateral MLO and CC views were obtained digitally with 3-D mammogram (digital breast tomosynthesis). Computer-aided detection was utilized in evaluation of this exam (CAD). FINDINGS: There is no evidence of suspicious mass or architectural distortion. No worrisome calcifications are evident. There are postoperative changes of the left breast. There has been no significant change from prior exam(s). BREAST DENSITY: B - There are scattered areas of fibroglandular density. Procedure Note Ashleigh Salcedo MD - 04/16/2025 CLINICAL: 69 years old, Female, routine annual exam. 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 TECHNIQUE: Bilateral MLO and CC views were obtained digitally with 3-Dmammogram (digital breast tomosynthesis). Computer-aided detection wasutilized in evaluation of this exam (CAD). FINDINGS: There is no evidence of suspicious mass or architectural distortion. Noworrisome calcifications are evident. There are postoperative changes ofthe left breast. There has been no significant change from prior exam(s). BREAST DENSITY: B - There are scattered areas of fibroglandular density. IMPRESSION: Benign. BI-RADS CATEGORY: 2 - BENIGN RECOMMENDATION: Screening bilateral mammogram is recommended in 1 year. Mammo Location: [facility], [address] [place] [address], [id number], . -------- FINAL REPORT -------- Dictated By: Ashleigh Salcedo Dictated Date: 04/16/2025 09:21 ET Assigned Physician: Ashleigh Salcedo Reviewed and Electronically Signed By: Ashleigh Salcedo Signed Date: 04/16/2025 09:45 ET Workstation ID: [id number] Transcribed By: Self Edit Transcribed Date: 04/16/2025 09:21 ET us Vishal Tolentino MD IM BI PROCEDURES Final Result * (ABNORMAL) Lipid panel with reflex to direct LDL (03/26/2025 1:25 PM EDT) Cholesterol 244(H) 0 - 200 mg/dL LAB CHEMISTRY METHOD 03/26/2025 3:[address] [facility] Triglycerides 172(H) 0 - 150 mg/dL LAB CHEMISTRY METHOD 03/26/2025 3:[address] [facility] HDL 92 >=40 mg/dL LAB CHEMISTRY METHOD 03/26/2025 3:[address] [facility] LDL Calculated 118(H) 0 - 100 mg/dL LAB CHEMISTRY METHOD 03/26/2025 3:[address] [facility] Comment:Estimated LDL Calcul ated using equation: Total cholesterol - HDL cholesterol - (Triglycerides/5) VLDL Cholesterol Keshawn 34.4 mg/dL LAB CHEMISTRY METHOD 03/26/2025 3:[address] [facility] Non HDL Chol. (LDL+VLDL) 152(H) <145 mg/dL LAB CHEMISTRY METHOD 03/26/2025 3:[address] [facility] Chol/HDL Ratio 2.7 0.0 - 4.4 LAB CHEMISTRY METHOD 03/26/2025 3:[address] [facility] Blood Venous blood specimen / Unknown Venipuncture / Unknown 03/26/2025 1:25 PM EDT 03/26/2025 1:25 PM EDT us Vishal Tolentino MD LAB BLOOD ORDERABLES Final Res ult Performing Organization Address City/[facility]/ZIP Co de Phone Number [facility] [address] [place] [address], [place] [phone] * Alanine aminotransferase (03/26/2025 1:25 PM EDT) ALT (SGPT) 22 10 - 60 unit/L LAB CHEMISTRY METHOD 03/26/2025 3:[address] [facility] Blood Venous blood specimen / Unknown Venipuncture / Unknown 03/26/2025 1:25 PM EDT 03/26/2025 1:25 PM EDT us Vishal Tolentino MD LAB BLOOD ORDERABLES Final Res ult [facility] [address] [place] [address], [place] [phone] * Aspartate aminotransferase (03/26/2025 1:25 PM EDT) AST (SGOT) 25 10 - 42 unit/L LAB CHEMISTRY METHOD 03/26/2025 3:[address] [facility] Blood Venous blood specimen / Unknown Venipuncture / Unknown 03/26/2025 1:25 PM EDT 03/26/2025 1:25 PM EDT us Vishal Tolentino MD LAB BLOOD ORDERABLES Final Res ult Performing Organization Address [facility]/ZIP Co de Phone Number [facility] [address] [place] [address], [place] [phone] * Thyroid stimulating hormone (03/26/2025 1:25 PM EDT) [facility] TSH 0.90 0.40 - 4.00 mcIU/mL LAB CHEMISTRY METHOD 03/26/2025 5:[address] [facility] Blood Venous blood specimen / Unknown Venipuncture / Unknown 03/26/2025 1:25 PM EDT 03/26/2025 1:25 PM EDT us Vishal Tolentino MD LAB BLOOD ORDERABLES Final Res ult Performing Organization Address [facility]/ZIP Co de Phone Number [facility] [address] [place] [address], [place] [phone] * (ABNORMAL) Basic metabolic panel (03/26/2025 1:25 PM EDT) [facility] Sodium 138 133 - 145 mmol/L LAB CHEMISTRY METHOD 03/26/2025 3:[address] [facility] Potassium 4.2 3.5 - 5.5 mmol/L LAB CHEMISTRY METHOD 03/26/2025 3:[address] [facility] Chloride 104 96 - 110 mmol/L LAB CHEMISTRY METHOD 03/26/2025 3:[address] [facility] CO2 32 21 - 32 mmol/L LAB CHEMISTRY METHOD 03/26/2025 3:[address] [facility] Anion Gap 2(L) 3 - 11 LAB CHEMISTRY METHOD 03/26/2025 3:[address] [facility] Glucose 108(H) 70 - 100 mg/dL LAB CHEMISTRY METHOD 03/26/2025 3:[address] [facility] BUN 25 5 - 25 mg/dL LAB CHEMISTRY METHOD 03/26/2025 3:[address] [facility] Creatinine 0.96 0.50 - 1.10 mg/dL LAB CHEMISTRY METHOD 03/26/2025 3:[address] [facility] eGFR 64 >=60 mL/min/1. 73m2 LAB CHEMISTRY METHOD 03/26/2025 3:[address] [facility] Comment:Calculation based on the Chronic Kidney Disease Epidemiology Collaboration (CKD-EPI) equation refit without adjustment for race. BUN/Creatinine Ratio 26.0 LAB CHEMISTRY METHOD 03/26/2025 3:[address] [facility] Calcium 9.8 8.5 - 10.5 mg/dL LAB CHEMISTRY METHOD 03/26/2025 3:[address] [facility] Blood Venous blood specimen / Unknown Venipuncture / Unknown 03/26/2025 1:25 PM EDT 03/26/2025 1:25 PM EDT Vishal Tolentino MD LAB BLOOD ORDERABLES Final Res ult [facility] [address] [place] [address], * DXA BONE DENSITY STUDY 1+ SITS [...] should be classified as having osteopenia. The [facility] Department of Internal Medicine recommends [...] [place] shouldbe classified as having osteopenia. The [facility] Department of Internal Medicine recommendsusing [...] fracture risk by FRAX. Vishal Tolentino MD [facility] DXA PROCEDURES Final Resul t * Falls Risk Assessment (09/16/2022) [facility] Falls Risk Assessment abstracted [facility] Provider HEALTH MAINTENANCE Final Result * Depression Screening (09/16/2022) [facility] Depression Screening abstracted [facility] Provider HEALTH MAINTENANCE Final Result * Colonoscopy (10/06/2021) [facility] Colonoscopy no interpretation , abstracted Anatomical Region Laterality Modality Other [facility] Provider HEALTH MAINTENANCE Final Result from Last 3 Months or Most Recently Relevant to Health Maintenance Insurance [employer] [place] [employer] Advance Directives Documents on File Type Date Recorded Patient Sustainability Consultant Expl anation Health Care Decision (hx) 04/08/2021 [...] (hx) 04/05/2021 AD THAKUR DIRECTIVE Care Teams Marketing Agent Relationship Specialty Start Date End Date Vishal Tolentino MD [address] [place] [phone] PCP - General Internal Medicine 05/20/24
== END 2025-05-21 11:31 | disposition home or self-care (01) ==
LOC: HO.RHES 10:37
PROVIDERS: PCP Internal Medicine; Visit Provider Internal Medicine Rheumatology
DX: M06.09 Rheumatoid arthritis without rheumatoid factor, multiple sites (principal); Z79.899 Other long term (current) drug therapy; S76.012A Strain of muscle, fascia and tendon of left hip, initial encounter; M53.3 Sacrococcygeal disorders, not elsewhere classified
CPT/HCPCS: 99214; G2211

== ENCOUNTER 2025-05-21 10:36 | Outpatient (REF) | payer MEDICARE, SELFPAY ==
--- OUTSIDE RECORDS SUMMARY | 2025-05-16 22:59 | XMS_ITS | Continuity of Care Document ---
Author Organization [facility] Marilin nasreen Address [address] [place] [address]- Care Team Providers Care Contact Acid Plant Operator Name Role Phone Randa KHAN, Vishal Olmos [id number] Date(s): 05/09/25 - 05/16/25 [facility] [address] [facility] [address] [place], [place] [address] Attending Physician: Paramjit Gibbons MD Encounter Type: Office Visit Allergies, Adverse Reactions, Alerts Substance Criticality Severity Reaction Reaction Severity Status amoxicillin diarrhea Active Augmentin diarrhea depression Active Immunizations Given and Recorded Vaccine Date Status Refusal Reason tetanus/diphtheria/pertussis, acel(Tdap) 04/27/25 Given Medications Albuterol (Eqv-ProAir HFA) See Instructions, PRN Dyspnea, 2 puffs Inhalation Every 6 hours, 0 Refills, Maintenance, 01/10/22 11:06:00 AM EDT, Partial fill upon patient request if the prescription is for a schedule II opioid drug. Start Date: 01/10/22 Status: Ordered Medication Dispense Status: Completed Total Allowed Fills: 1 Fills Dispensed: 0 Azithromycin 500 mg, PRN, Maintenance, Other, PRN for dentist procedures, 02/18/21 11:27:00 AM EDT Start Date: 02/18/21 Status: Ordered Medication Dispense Status: Completed Total Allowed Fills: 1 Fills Dispensed: 0 Folic Acid = 1 mg, By Mouth, Daily, 0 Refills, Maintenance, 01/31/22 9:50:00 AM EDT, Partial fill upon patient request if the prescription is for a schedule II opioid drug. Start Date: 01/31/22 Status: Ordered Medication Dispense Status: Completed Total Allowed Fills: 1 Fills Dispensed: 0 gabapentin 300 mg oral capsule 600 mg, 2, capsule, By Mouth, Daily at bedtime, Refills 0, Maintenance, 06/26/18 4:16:58 PM EST Start Date: 06/26/18 Status: Ordered Medication Dispense Status: Completed Total Allowed Fills: 1 Fills Dispensed: 0 meloxicam 15 mg oral tablet 1 tablet = 15 mg, By Mouth, Daily, 0 Refills, Maintenance, 07/01/24 9:34:00 AM EST, Tablet, Partialfill upon patient request if the prescription is for a schedule II opioid drug. Start Date: 07/01/24 Status: Ordered Medication Dispense Status: Completed Total Allowed Fills: 1 Fills Dispensed: 0 Methotrexate = 15 mg, By Mouth, Every 7 days, 0 Refills, Maintenance, 01/31/22 9:50:00 AM EDT, Partial fill upon patient request if the prescription is for a schedule II opioid drug. Start Date: 01/31/22 Status: Ordered Medication Dispense Status: Completed Total Allowed Fills: 1 Fills Dispensed: 0 Misc Rx Refills 0, Maintenance, docusate 50mg/ 8.6 sennosides 1 cap daily at bedtime, 07/01/24 9:36:00 AM EST, Supply Start Date: 07/01/24 Status: Ordered Medication Dispense Status: Completed Total Allowed Fills: 1 Fills Dispensed: 0 Misc Rx Refills 0, Maintenance, Rolaids advanced 1 capsule daily as needed, 07/01/24 9:40:00 AM EST, Supply Start Date: 07/01/24 Status: Ordered Medication Dispense Status: Completed Total Allowed Fills: 1 Fills Dispensed: 0 Multivitamin 1 cap, By Mouth, Daily, 0 Refills, Maintenance, 07/01/24 9:40:00 AM EST, Partial fill upon patient request if the prescription is for a schedule II opioid drug. Start Date: 07/01/24 Status: Ordered Medication Dispense Status: Completed Total Allowed Fills: 1 Fills Dispensed: 0 Synthroid 0.075 mg oral tablet 1 tablet = 75 mcg, By Mouth, Daily, 0 Refills, Maintenance, 07/01/24 9:32:00 AM EST, Tablet, Partial fill upon patient request if the prescription is for a schedule II opioid drug. Start Date: 07/01/24 Status: Ordered Medication Dispense Status: Completed Total Allowed Fills: 1 Fills Dispensed: 0 traZODone 50 mg oral tablet 50 mg, 1, tablet, By Mouth, Daily at bedtime, # 30 tablet, Refills 0, Maintenance, 02/18/21 11:27:00 AM EDT, Partial fill upon patient request if the prescription is for a schedule II opioid drug. Start Date: 02/18/21 Status: Ordered Medication Dispense Status: Completed Quantity: 30.0 Unit: tablet Total Allowed Fills: 1 Fills Dispensed: 0 Tylenol 8 HR Arthritis Pain = 1,300 mg, By Mouth, 2 times a day, 0 Refills, Maintenance, 07/01/24 9:39:00 AM EST, Partial fill upon patient request if the prescription is for a schedule II opioid drug. Start Date: 07/01/24 Status: Ordered Medication Dispense Status: Completed Total Allowed Fills: 1 Fills Dispensed: 0 Vital Signs Most recent to oldest [Reference Range]: 1 Height 158 cm (05/09/25 2:28 PM) Weight 50 kg (05/09/25 2:28 PM) Body Mass Index [18.5-24.99 kg/m2] 20.03 kg/m2 (05/09/25 2:28 PM) Weight Obtained Via Patient/family state d (05/09/25 2:28 PM) Social History Social History Type Response Smoking Status Former smoker; Tobac co user in household: No entered on: 08/15/16 Sex Sex Representation Female (finding) Note * Amanda Hill: PERFORM Event Display: Patient Education/Instruction Authored Date: [id number] Ambulatory Adult Visit Summary [facility] [address] [place] [address] Name: MARIA DE JESUS FARAH : 1955?? Visit: 05/09/2025 14:18?? Ambulatory Visit Instructions ?? Your Care Team Primary Care Provider Randa KHAN, Vishal Olmos? This Visit Provider Shai KHAN, Paramjit Farley Vitals Signs Height: 158 cm Weight: 50 kg Body Mass Index: 20.03 kg/m2 Body surface area: 1.48 Medications The list below reflects the information in our records and provided by you today along with any changes made during this visit. Please continue your medications until treatment is completed or stopped by your provider. If this is different from the information you have or there are other questions,please contact the prescribing provider. What How Much When Instructions Unchanged Acetaminophen (Tylenol 8 HR Arthritis Pain) 1,300 Milligram Oral Twice a day Unchanged Albuterol (Albuterol (Eqv-ProAir HFA)) See instructions Special Instructions: 2 puffs Inhalation Every 6 hours, As needed for Dyspnea ?? Unchanged Azithromycin 500 Milligram As needed for Other Special Instructions: PRN for dentist procedures ?? Unchanged Folic Acid 1 Milligram Oral Daily Unchanged Gabapentin (gabapentin 300 mg oral capsule) 2 capsule Oral Daily at Bedtime Unchanged Levothyroxine (Synthroid 0.075 mg oral tablet) 1 tab(s) Oral Daily Unchanged Meloxicam (meloxicam 15 mg oral tablet) 1 tab(s) Oral Daily Unchanged Methotrexate 15 Milligram Oral Every 7 days Unchanged Miscellaneous Rx (Misc Rx) Special Instructions: docusate 50mg/ 8.6 sennosides 1 cap daily at bedtime Unchanged Miscellaneous Rx (Misc Rx) Special Instructions: Rolaids advanced 1 capsule daily as needed ?? Unchanged Multivitamin 1 cap Oral Daily Unchanged Trazodone (traZODone 50 mg oral tablet) 1 tab(s) Oral Daily at Bedtime Medications and Immunizations Administered Medications Given During Visit No medications given during this visit.?? Allergies (NKA means No Known Allergies) Augmentin??diarrhea, depression amoxicillin??diarrhea Common Emergency Awareness Tips IS IT A STROKE? Act FAST and Check for these signs: FACE Does the face look uneven? ARM Does one arm drift down? SPEECH Does their speech sound strange? TIME Call at any sign of stroke ?? Heart Attack Signs Chest discomfort: Most heart attacks involve discomfort in the center of the chest and lasts more than a few minutes, or goes away and comes back. It can feel like uncomfortable pressure, squeezing, fullness or pain. Discomfort in upper body: Symptoms can include pain or discomfort in one or both arms, back, neck, jaw or stomach. Shortness of breath: With or without discomfort. Other signs: Breaking out in a cold sweat, nausea, or lightheaded. Remember, MINUTES DO MATTER. If you experience any of these heart attack warning signs, call to get immediate medical attention! ?? Smoking can increase your chances of developing chronic health problems and can cause harmful effects to other family members in your house. If you smoke, you are strongly encouraged to quit. Please call [facility] [employer] Link at [phone] or [phone]-[employer] ([phone]) or log in to [email or web address] for referrals to smoking cessation programs. ?? The National Suicide Prevention Hotline is available 06/02 if you or someone you know needs to find a reason to keep living. By calling 0-044-627-[employer] (1761) you'll be connected to a skilled, trained counselor at a crisis center in your area. [facility] [employer] Portal You can view and manage your care through the patient portal or by using a health care mahad of your choosing. [employer] is a website that allows you to securely view your medical information including your hospital discharge summary, office visit summaries, medications and follow-up visits. You can also request appointments, renew medications, and request access to your medical information using a health care mahad of your choosing, or just ask a question. You can enroll at [email or web address] or register during your next office visit. [facility], in keeping with [facility] guidance, no longer requires face masks for staff, patientsor visitors in most situations. Similiar to time spent indoors at other locations, there is the chance that you were exposed to repiratory viruses during your time with us (such as flu or COVID-19). If you develop symptoms concerning for a viral respiratory infection, please seek testing (and treatment if indicated) from your medical provider or home test kit. ?? Disclaimer: The information provided is of a general nature and is intended to be used in conjunction with the recommendations and advice of your health care practitioner. Every effort has been made to ensure that the information provided is accurate and complete at the time it is provided to you however, as your needs change, or, as new information becomes available, different or additional instructions may be required. ?? If you have questions, please consult with your primary care provider or pharmacist, as appropriate. This information is not intended to serve as substitution for assessment and evaluation by a qualified health care provider. If you do not have a primary care provider, you may find a [facility] provider by calling [facility] at [phone]. Patient Care team information Care Team Personnel Name: Vishal Tolentino MD Position: Reference Physician Member Role: PCP Telecom: Care Team Related Persons Name: ADRYAN FARAH Name: TERE ELLIS Insurance Providers Guarantor name: MARIA DE JESUS V[facility]alio [facility] Plan Information #: 1 Payer: [employer] MEDICARE ADV PPO Payer Identifier: [employer] Member Number: [id number] Group Number: [id number] Subscriber Identifier: [id number] Relationship to Subscriber: self Coverage Type: Medicare PPO Coverage Verification Date: Telecom: NA Address:
[2025-05-21 18:08] LABS: MANUAL DIFF FLAG NO
[2025-05-21 18:30] LABS: Alanine Aminotransferase 17 U/L (0-31); Albumin Level 4.6 g/dL (3.5-5.0); Alkaline Phosphatase 108 U/L (39-117); Anion Gap 10 (12-20); Aspartate Amino Transferase 36 U/L (5-31); Blood Urea Nitrogen 21 mg/dL (9-16); Calcium 9.3 mg/dL (8.4-10.2); Carbon Dioxide 29 mmol/L (22-29); Chloride 105 mmol/L (96-108); Estimated Glomerular Filt Rate > 60; Potassium 4.2 mmol/L (3.3-5.1); Sodium 140 mmol/L (135-145); Total Protein 6.9 g/dL (6.5-8.0)
[2025-05-21 18:43] LABS: Hematocrit 40.4 % (37.0-47.0); Hemoglobin 13.1 g/dl (12.0-16.0); Imm Gran Abs Auto 0.00 X10*3/uL (0.00-0.03); Imm Gran Pct Auto 0.0 % (0.0-0.4); Lymphocytes Absolute Auto 0.8 X10*3/uL (1.2-4.9); Mean Corpuscular HGB Conc 32.4 g/dl (31.0-35.0); Mean Corpuscular Hemoglobin 32.5 pg (27.0-33.0); Mean Corpuscular Volume 100.2 fL (80.0-98.0); NRBC Abs Auto 0.000 X10*3/uL (0.0-0.012); NRBC Pct Auto 0.0 /100WBC (0.0-0.2); Platelet Count 216 X10*3/uL (160-400); Red Blood Count 4.03 X10*6/uL (4.20-5.50); White Blood Count 2.8 X10*3/uL (4.8-10.8)
== END 2025-05-21 10:37 | disposition home or self-care (01) ==
LOC: HO.HKASLDS 10:36
PROVIDERS: PCP Internal Medicine; Visit Provider Internal Medicine Rheumatology
DX: M06.9 Rheumatoid arthritis, unspecified (principal); M41.9 Scoliosis, unspecified; Z79.899 Other long term (current) drug therapy; M53.3 Sacrococcygeal disorders, not elsewhere classified; S76.012A Strain of muscle, fascia and tendon of left hip, initial encounter; X58.XXXA Exposure to other specified factors, initial encounter
CPT/HCPCS: 36415; 80053; 85025; 85652; 99212

== ENCOUNTER 2025-06-23 14:20 | Outpatient (REF) | payer MEDICARE, SELFPAY ==
[2025-06-23 18:30] LABS: MANUAL DIFF FLAG NO
[2025-06-23 18:36] LABS: Hematocrit 41.1 % (37.0-47.0); Hemoglobin 13.2 g/dl (12.0-16.0); Imm Gran Abs Auto 0.02 X10*3/uL (0.00-0.03); Imm Gran Pct Auto 0.4 % (0.0-0.4); Lymphocytes Absolute Auto 0.9 X10*3/uL (1.2-4.9); Mean Corpuscular HGB Conc 32.1 g/dl (31.0-35.0); Mean Corpuscular Hemoglobin 32.3 pg (27.0-33.0); Mean Corpuscular Volume 100.5 fL (80.0-98.0); NRBC Abs Auto 0.000 X10*3/uL (0.0-0.012); NRBC Pct Auto 0.0 /100WBC (0.0-0.2); Platelet Count 238 X10*3/uL (160-400); Red Blood Count 4.09 X10*6/uL (4.20-5.50); White Blood Count 4.8 X10*3/uL (4.8-10.8)
[2025-06-23 18:53] LABS: Alanine Aminotransferase 15 U/L (0-31); Aspartate Amino Transferase 27 U/L (5-31)
--- OUTSIDE RECORDS SUMMARY | 2025-06-23 23:17 | XMS_ITS | Clinical Summary ---
Author Organization [facility] Prior to 12/14/24 Address [address] [place] [address] Care Team Providers Care Windows Support Engineer Name Role Phone Vishal Tolentino MD Primary Care Provider Allergies Active Allergy Reactions Criticality Noted Date [...] Tdap) 06/15/2021 06/15/2011 COVID-19 Vaccine ( season) 2025 07/06/2021, 10/16/2020, 09/25/2020 Influenza Vaccine [...] this topic Medical Devices Implanted Type Area Quoter Device Identifier Shelf Expiration Date Model / Serial / Lot [place] Sut 5.5mm Fullthrd Med Insite Preld Frc Fbr Sprt Peek - [id number] - [id number] Implanted:Qty : 1 on 09/06/2017 by Ari Serrano MD [facility] Right: Shoulder [employer] 04/12/2020 [id number] / / [id number] Wayland Sut 5.5mm Fullthrd Med Insite Preld Frc Fbr Sprt Peek - [id number] - [id number] Implanted:Qty : 1 on 09/06/2017 by Ari Serrano MD [facility] Right: Shoulder [employer] 06/29/2019 [id number] / / [id number] Wayland Swivelock 19.1mm 4.75mm Clsd Eyelet Vent Peek - [id number] - [id number] Implanted:Qty : 1 on 09/06/2017 by Ari Serrano MD at [facility] Right: Shoulder [employer] 04/15/2022 [id number] / / [id number] Shell Trident Ii E 52mm 5 Screw Hole Cluster Tritanium - [id number] - [id number] Implanted:Qty : 1 on 08/06/2020 by Bryant Delcid MD at [facility] Right: Hip [employer] [id number] 02/11/2025 702-04-52E / / [id number] Screw Trident Ii 30mm 6.5mm Low Profile Hexagonal Bone - [id number] - [id number] Implanted:Qty : 1 on 08/06/2020 by Bryant Delcid MD at [facility] Right: Hip [employer] [id number] 02/10/2025 9687-3763 / / 29FH Insert Trident 10d E 36mm X3 Acetabular Hip - [id number] - [id number] Implanted:Qty : 1 on 08/06/2020 by Bryant Delcid MD at [facility] Right: Hip [employer] [id number] 05/07/2022 623-10-36E / / [id number] Screw Bone Trident Ii L20 Mm Od6.5 Mm Low Profile Hexa - [id number] - [id number] Implanted:Qty : 1 on 08/06/2020 by Bryant Delcid MD [facility] Right: Hip [employer] [id number] 02/15/2025 3578-5996 / / [id number] Stem Hip Neck Angle 127 Degree Accolade Ii Sz #3 - [id number] - [id number] Implanted:Qty : 1 on 08/06/2020 by Bryant Delcid MD [place] [facility] Right: Hip [employer] [id number] 06/05/2025 8475-6143 / / [id number] Head V40 -2.5mm 36mm Biolox Delta Femoral Hip - 995408 - [id number] Implanted:Qty : 1 on 08/06/2020 by Bryant Delcid MD [place] [facility] Right: Hip [employer] [id number] 04/16/2025 6570-0-436 / / [id number] Advance Directives For more information, please contact: [phone] Latest Code Status on File Code Status [...] way: discussion with patient . Care Teams Windows Support Engineer Relationship Specialty Start Date End Date Vishal Tolentino MD PCP - General Internal Medicine 07/29/20
--- OUTSIDE RECORDS SUMMARY | 2025-06-23 23:17 | XMS_ITS | Clinical Summary ---
Author Organization [place] [address] Diana mckinley [facility] Building Address [address] [facility] [place] [address] Phone Care Team Providers Care Rib Puller Name Role Phone Vishal Tolentino MD Primary Care Provider [phone] Allergies Active Allergy Reactions Criticality Noted Date [...] at bedtime. 30 tablet 5 5 Active meloxicam (MOBIC) 15 mg tablet 5 Active albuterol HFA (PROAIR HFA ; PROVENTIL HFA ; VENTOLIN HFA) 90 mcg/actuation inhaler Inhale 2 puffs by mouth every 4 (four) hours if needed for wheezing. 6.7 g 2 5 11/26/19 26 Active Synthroid 75 mcg tablet TAKE ONE TABLET BY MOUTH EVERY DAY 90 tablet 1 5 Active gabapentin (NEURONTIN) 300 mg capsule Take 1 capsule (300 mg total) by mouth 2 (two) times a day. 180 capsule 1 5 Active Active Problems [...] 11:59 PM EDT Hospital Encounter Radiology Department - [address] [address] Screening mammogram, encounter for Discharge Disposition: Home or Self Care 03/26/2025 1:00 PM EDT Office Visit Internal Medicine - [address] [address] Vishal Tolentino MD Hypothyroidism, unspecified type (Primary [...] Surgery Date Site/Laterality Comments APPENDECTOMY 2002 PROCEDURE: [place] APPENDECTOMY CARPAL TUNNEL RELEASE R 07/29/12 Dr Gibbons PROCEDURE: MA NEUROPLASTY &/TRANSPOS MEDIAN NRV CARPAL TUNNE; COMMENT: ulnar decomp cubital tunnel decompression CARPAL TUNNEL RELEASE 02/2018 Left PROCEDURE: MA NEUROPLASTY &/TRANSPOS MEDIAN NRV CARPAL TUNNE; COMMENT: Dr Gibbons OTHER SURGICAL HISTORY 02/2018 Left PROCEDURE: [place] NEUROPLASTY &/TRANSPOSITION ULNAR NERVE ELBOW; COMMENT: Dr Gibbons ROTATOR CUFF REPAIR 08/2017 Right PROCEDURE: HISTORICAL ROTATOR CUFF REPAIR; COMMENT: Dr Chery HIP ARTHROPLASTY 2020 Bilateral PROCEDURE: HISTORICAL HIP REPLACEMENT; COMMENT: Total OTHER SURGICAL HISTORY 2021 Left PROCEDURE: PARTIAL MASTECTOMY BREAST SURGERY PROCEDURE: [place] UNLISTED PROCEDURE BREAST OTHER SURGICAL HISTORY 02/18/2022 [...] Brother Alive 1 brother Father (Age 85) [place] Maternal Grandfather Maternal Grandmother Mother (Age 72) [place] Mother's side Alive Paternal Grandfather Paternal Grandmother Sister 1 Alive x5 alive 02/2015 Sister 2 (Age 53 (Aug 2014)) end stage Etoh cirrhosis, Celiac disease Social History Tobacco Use Types Packs/Day Years Used Date Smoking Tobacco: Former Cigarettes 1.5 Q uit: 04/16/2004 Smokeless Tobacco: Never Tobacco [...] AM EST Office Visit General Surgery - [address] [place] [address] Andrzej Coles MD [address] [place] [phone] 09/29/2025 1:00 PM EDT Office Visit Internal Medicine - [facility] [address] [place] [address] Vishal Tolentino MD [address] [place] [address] 11/26/2025 1:15 PM EDT Office Visit Pulmonology - [place] [address] [place] [phone] Gerry Jimenez MD [address] [place] [address] Health Maintenance Due Date Last Done Comments [...] Depression Screening 07/17/2024 09/16/2022 COVID-19 Vaccine ( season) 2025 07/06/2021, 10/16/2020, 09/25/2020 Influenza Vaccine (#1) 2025 , 04/18/2023, 05/27/2021, Additional history exists Breast Cancer Screening 04/11/2027 04/11/20 25, 03/08/2024, 03/08/2024, Additional history exists Cholesterol Screening (Lipid Panel) 03/26/2030 03/26/2025, 12/12/2023, 12/12/2023 Colorectal Cancer Screening: Colonoscopy 10/07/2031 10/06/2021, 10/06/2021 Osteoporosis Screening (Bone Density Screening) 05/18/2033 [...] this topic Medical Devices Implanted Type Area Secondary Spanish Teacher Device Identifier Shelf Expiration Date Model / Serial / Lot Shell Trident Ii E 52mm 5 Screw Hole Cluster Tritanium - [id number] Implanted:Qty: 1 on 08/06/2020 by Bryant Delcid MD Right: Hip [employer] [id number] 02/11/2025 702-04-52E / / [id number] Screw Trident Ii 30mm 6.5mm Low Profile Hexagonal Bone - [id number] Implanted:Qty: 1 on 08/06/2020 by Bryant Delcid MD Right: Hip [employer] [id number] 02/10/2025 1571-6586 / / [id number] Insert Trident 10d E 36mm X3 Acetabular Hip - [id number] Implanted:Qty: 1 on 08/06/2020 by Bryant Delcid MD Right: Hip [employer] [id number] 05/07/2022 623-10-36E / / [id number] Screw Bone Trident Ii L20 Mm Od6.5 Mm Low Profile Hexa - [id number] Implanted:Qty: 1 on 08/06/2020 by Bryant Delcid MD Right: Hip [employer] [id number] 02/15/2025 6272-4369 / / [id number] Stem Hip Neck Angle 127 Degree Accolade Ii Sz #3 - [id number] Implanted:Qty: 1 on 08/06/2020 by Bryant Delcid MD Right: Hip [employer] [id number] 06/05/2025 4602-2375 / / [id number] Head V40 -2.5mm 36mm Biolox Delta Femoral Hip - [id number] Implanted:Qty: 1 on 08/06/2020 by Bryant Delcid MD Right: Hip [employer] [id number] 04/16/2025 6570-0-436 / / [id number] Procedures Procedure Name Priority Date/Time Associated Diagnosis Comments EXTERNAL CLINICAL LAB 05/22/2025 MG MAMMO DIGITAL SCREENING W SYD BILAT [...] Health Maintenance Results * External clinical lab (05/22/2025) us Provider [facility] LAB BLOOD ORDERABLES Fin al Result * MG Mammo Digital Screening w Syd bilat (04/11/2025 3:47 PM EDT) Anatomical Region Laterality Modality Breast Bilateral Mammography 04/16/2025 9:2 1 AM EDT Impressions 04/16/2025 9:45 AM EDT Benign. BI-RADS CATEGORY: 2 - BENIGN RECOMMENDATION: Screening bilateral mammogram is recommended in 1 year. Mammo Location: [facility], [address] [place] [address], [id number], . -------- FINAL REPORT -------- Dictated By: Ashleigh Salcedo Dictated Date: 04/16/2025 09:21 ET Assigned Physician: Ashleigh Salcedo Reviewed and Electronically Signed By: Ashleigh Salcedo Signed Date: 04/16/2025 09:45 ET Workstation ID: [id number] Transcribed By: Self Edit Transcribed Date: 04/16/2025 [...] is recommended in 1 year. Mammo Location: [facility], [address] [place] [address], [address], . -------- FINAL REPORT -------- Dictated By: Ashleigh Salcedo Dictated Date: 04/16/2025 09:21 ET Assigned Physician: Ashleigh Salcedo Reviewed and Electronically Signed By: Ashleigh Salcedo Signed Date: 04/16/2025 09:45 ET Workstation ID: [id number] Transcribed By: Self Edit Transcribed Date: 04/16/2025 09:21 ET us Vishal Tolentino MD IM BI PROCEDURES Final Result * (ABNORMAL) Lipid panel with reflex to direct LDL (03/26/2025 1:25 PM EDT) Cholesterol 244(H) 0 - 200 mg/dL LAB CHEMISTRY METHOD 03/26/2025 3:56 PM EDT [facility] Triglycerides 172(H) 0 - 150 mg/dL LAB CHEMISTRY METHOD 03/26/2025 3:56 PM EDT [facility] HDL 92 >=40 mg/dL LAB CHEMISTRY METHOD 03/26/2025 3:56 PM EDT [facility] LDL Calculated 118(H) 0 - 100 mg/dL LAB CHEMISTRY METHOD 03/26/2025 3:56 PM EDT [facility] Comment:Estimated LDL Calcul ated using equation: Total cholesterol - HDL cholesterol - (Triglycerides/5) VLDL Cholesterol Keshawn 34.4 mg/dL LAB CHEMISTRY METHOD 03/26/2025 3:56 PM EDT [facility] Non HDL Chol. (LDL+VLDL) 152(H) <145 mg/dL LAB CHEMISTRY METHOD 03/26/2025 3:56 PM EDT [facility] Chol/HDL Ratio 2.7 0.0 - 4.4 LAB CHEMISTRY METHOD 03/26/2025 3:56 PM EDT [facility] Blood Venous blood specimen / Unknown Venipuncture / Unknown 03/26/2025 1:25 PM EDT 03/26/2025 1:25 PM EDT us Vishal Tolentino MD LAB BLOOD ORDERABLES Final Res ult Performing Organization Address [facility]/ZIP Co de Phone Number [facility] [address] [place] [address], [place] [phone] * Alanine aminotransferase (03/26/2025 1:25 PM EDT) ALT (SGPT) 22 10 - 60 unit/L LAB CHEMISTRY METHOD 03/26/2025 3:45 PM EDT [facility] Blood Venous blood specimen / Unknown Venipuncture / Unknown 03/26/2025 1:25 PM EDT 03/26/2025 1:25 PM EDT us Vishal Tolentino MD LAB BLOOD ORDERABLES Final Res ult Performing Organization Address City/[facility]/ZIP Co de Phone Number [facility] [address] [place] [address], [place] [phone] * Aspartate aminotransferase (03/26/2025 1:25 PM EDT) AST (SGOT) 25 10 - 42 unit/L LAB CHEMISTRY METHOD 03/26/2025 3:45 PM EDT [facility] Blood Venous blood specimen / Unknown Venipuncture / Unknown 03/26/2025 1:25 PM EDT 03/26/2025 1:25 PM EDT us Vishal Tolentino MD LAB BLOOD ORDERABLES Final Res ult Performing Organization Address [facility]/ZIP Co de Phone Number [facility] [address] [place] [address], [place] [phone] * Thyroid stimulating hormone (03/26/2025 1:25 PM EDT) TSH 0.90 0.40 - 4.00 mcIU/mL LAB CHEMISTRY METHOD 03/26/2025 5:04 PM EDT [facility] Blood Venous blood specimen / Unknown Venipuncture / Unknown 03/26/2025 1:25 PM EDT 03/26/2025 1:25 PM EDT us Vishal Tolentino MD LAB BLOOD ORDERABLES Final Res ult Performing Organization Address [facility]/ZIP Co de Phone Number [facility] [address] [place] [address], [place] [phone] * (ABNORMAL) Basic metabolic panel (03/26/2025 1:25 PM EDT) Pathologist [facility] Sodium 138 133 - 145 mmol/L LAB CHEMISTRY METHOD 03/26/2025 3:56 PM EDT [facility] Potassium 4.2 3.5 - 5.5 mmol/L LAB CHEMISTRY METHOD 03/26/2025 3:56 PM EDT [facility] Chloride 104 96 - 110 mmol/L LAB CHEMISTRY METHOD 03/26/2025 3:56 PM EDT [facility] CO2 32 21 - 32 mmol/L LAB CHEMISTRY METHOD 03/26/2025 3:56 PM EDT [facility] Anion Gap 2(L) 3 - 11 LAB CHEMISTRY METHOD 03/26/2025 3:56 PM EDT [facility] Glucose 108(H) 70 - 100 mg/dL LAB CHEMISTRY METHOD 03/26/2025 3:56 PM EDT [facility] BUN 25 5 - 25 mg/dL LAB CHEMISTRY METHOD 03/26/2025 3:56 PM EDT [facility] Creatinine 0.96 0.50 - 1.10 mg/dL LAB CHEMISTRY METHOD 03/26/2025 3:56 PM EDT [facility] eGFR 64 >=60 mL/min/1. 73m2 LAB CHEMISTRY METHOD 03/26/2025 3:56 PM EDT [facility] Comment:Calculation based on the Chronic Kidney Disease Epidemiology Collaboration (CKD-EPI) equation refit without adjustment for race. BUN/Creatinine Ratio 26.0 LAB CHEMISTRY METHOD 03/26/2025 3:56 PM EDT [facility] Calcium 9.8 8.5 - 10.5 mg/dL LAB CHEMISTRY METHOD 03/26/2025 3:56 PM EDT [facility] Blood Venous blood specimen / Unknown Venipuncture / Unknown 03/26/2025 1:25 PM EDT 03/26/2025 1:25 PM EDT us Vishal Tolentino MD LAB BLOOD ORDERABLES Final Res ult [facility] [address] [place] [address], * DXA BONE DENSITY STUDY 1+ SITS [...] should be classified as having osteopenia. [facility] Department of Internal Medicine recommends using [...] on the World Health Organization criteria, Marcelina M Riopelle shouldbe classified as having osteopenia. [facility] Department of Internal Medicine recommendsusing National [...] fracture risk by FRAX. Vishal Tolentino MD [facility] DXA PROCEDURES Final Resul t * Falls Risk Assessment (09/16/2022) [facility] Falls Risk Assessment abstracted Result [facility] Provider HEALTH MAINTENANCE Final Result * Depression Screening (09/16/2022) [facility] Depression Screening abstracted Result [facility] HEALTH MAINTENANCE Final Result * Colonoscopy (10/06/2021) [facility] Colonoscopy no interpretation , abstracted Anatomical Region Laterality Modality Other Result [facility] Provider HEALTH MAINTENANCE Final Result from Last 3 Months or Most Recently Relevant to Health Maintenance Insurance [employer] [place] [employer] Advance Directives Documents on File Type Date Recorded Patient Pss Delivery Professional Expl anation Health Care Decision (hx) 04/08/2021 [...] (hx) 04/05/2021 AD THAKUR DIRECTIVE Care Teams Rib Puller Relationship Specialty Start Date End Date Vishal Tolentino MD [address] [place] [phone] PCP - General Internal Medicine 05/20/24
== END 2025-06-23 14:21 | disposition home or self-care (01) ==
LOC: HO.HKASLDS 14:20
PROVIDERS: PCP Internal Medicine; Visit Provider Internal Medicine Rheumatology
DX: M06.09 Rheumatoid arthritis without rheumatoid factor, multiple sites (principal); D72.819 Decreased white blood cell count, unspecified; Z79.899 Other long term (current) drug therapy
CPT/HCPCS: 36415; 84450; 84460; 85025